=== PATIENT | female | born 1950 | race Caucasian/White ===

== ENCOUNTER → 2018-10-10 13:41 | Outpatient (CLI) | payer OTHER, SELFPAY ==
--- NOTE | 2018-10-10 | DI.CT.S_ITS ---
PROCEDURE: CT SINUS SCREEN WO CON INDICATIONS: CHRONIC SIUSITIS TECHNIQUE: Noncontrast 3.0 mm axial images acquired from the frontal sinuses to the mid-sella, with coronal and sagittal reformats. For radiation dose reduction, the following was used: automated exposure control, adjustment of mA and/or kV according to patient size. COMPARISON: None. FINDINGS: Image quality: Excellent. Sinuses: Sinsues demonstrating minimal ethmoid sinus mucosal thickening. Remaining sinuses are clear. Ostiomeatal Complexes: Ostiomeatal complexes are patent. No Lina cells. Miscellaneous: Visualized intra-orbital contents are normal. No deandre bullosa or paradoxical turbinate curvature. No nasal septal deviation. There is a 5 mm right and 7 mm left parotid masses. No priors are available for comparison. IMPRESSION: 1. Sinsues are clear. 2. Subcentimeter masses within the parotid gland. There overall nonspecific. Primary differential diagnosis includes pleomorphic adenoma, Celi's tumor or less likely neoplastic etiologies. Further evaluation is recommended as clinically indicated. Dictated by: Yani Monzon M.D. on 10/10/2018 at 14:49 Approved by: Yani Monzon M.D. on 10/10/2018 at 15:17
== END ==
PROVIDERS: PCP Internal Medicine; Visit Provider Internal Medicine
DX: J32.1 Chronic frontal sinusitis (principal)
CPT/HCPCS: 70486

== ENCOUNTER → 2020-04-07 12:22 | Outpatient (CLI) | payer MEDICARE, SELFPAY ==
--- NOTE | 2020-04-07 | DI.MRI.S_ITS ---
PROCEDURE: MR KNEE LT WO CON INDICATIONS: Pain in left knee TECHNIQUE: Noncontrast sagittal PD fast spin echo and T2 fast spin echo with fat saturation, sagittal 3-D FLASH with fat saturation; coronal T1 spin echo and PD fast spin echo with fat saturation, and axial PD fast spin echo with fat saturation through the knee. COMPARISON: [facility] [place], CR, XR KNEE ARTHRITIC SERIES LT, 02/23/2020, 13:13. [facility], MR, KNEE WITHOUT CONTRAST, 12/28/2015, 17:31. FINDINGS: Image quality: Excellent. Menisci: Previously seen horizontal tear of the medial meniscus appears to have been repaired. Previously seen posterior horn medial meniscal tear at the meniscal root ligament insertion site has been repaired. No evidence of new medial meniscal tear. Lateral meniscus demonstrates new amorphous high signal intensity within its anterior horn, without evidence of articular surface extension. Cruciate ligaments: The anterior and posterior cruciate ligaments appear intact. There is increased, moderate T2 signal lesion along the course of the anterior cruciate ligament, consistent with myxoid degeneration. Medial structures: The medial collateral ligament appears intact. Visualized portions of the pes anserinus tendons appear normal. Moderate medial bursal fluid. Lateral structures: The lateral collateral ligament, long and short heads of the biceps femoris tendon appear intact. The popliteus tendon appears normal. Iliotibial band appears normal. Anterior structures: The quadriceps and patellar tendons appear intact. There is lateral patellar subluxation. No femoral trochlear dysplasia or ventral trochlear prominence. No edema in the infrapatellar fat pad. Bones and cartilage: No bone marrow contusions or fractures. Mild tricompartmental periarticular osteophyte formation is present. There is moderate to severe articular cartilage loss diffusely overlying the weightbearing aspects of the medial femoral condyle and medial tibial plateau. Mild articular cartilage loss diffusely relies the weightbearing aspects of the lateral femoral condyle and lateral tibial plateau. Severe articular cartilage loss overlies the medial patellar apex and medial patellar facet. Joint space: There is a moderate knee joint effusion and a small Nichole's cyst. Normal appearing synovial plicae are incidentally noted. IMPRESSION: 1. Tricompartmental osteoarthritis with associated articular cartilage loss. 2. Post surgical sequelae involving the medial meniscus. No evidence of new medial meniscal tear. 3. 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 4. 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 5. Knee joint effusion and Nichole's cyst. 6. Medial bursitis. Dictated by: Dread Palma M.D. on 04/07/2020 at 15:25 Approved by: Dread Palma M.D. on 04/07/2020 at 15:29
== END ==
PROVIDERS: PCP Internal Medicine; Referring Provider Orthopaedic Surgery; Visit Provider Orthopaedic Surgery
DX: M25.562 Pain in left knee (principal); M17.12 Unilateral primary osteoarthritis, left knee; M25.462 Effusion, left knee; M71.22 Synovial cyst of popliteal space [Baker], left knee; M71.562 Other bursitis, not elsewhere classified, left knee
CPT/HCPCS: 73721

== ENCOUNTER → 2020-11-24 10:53 | Outpatient (CLI) | payer MEDICARE, SELFPAY ==
--- NOTE | 2020-11-24 | DI.RAD.S_ITS ---
PROCEDURE: XR CHEST 2V INDICATIONS: XR Dyspnea TECHNIQUE: 2 views of the chest were acquired. COMPARISON: [facility], , CHEST 2 VIEW, 09/07/2016, 12:42. FINDINGS: Surgical changes and devices: None. Lungs and pleura: Lungs are clear except for a mild chronic interstitial prominence, stable over time.. No pleural effusions or pneumothorax. Mediastinum: Mediastinal contours are normal. Heart size is normal. Bones and chest wall: No suspicious bony abnormalities. Soft tissues appear unremarkable. Prior right shoulder tendon transfer jami noted. IMPRESSION: Mild chronic interstitial prominence, no acute disease. Dictated by: Ashok Ferrer M.D. on 11/24/2020 at 12:06 Approved by: Ashok Ferrer M.D. on 11/24/2020 at 12:25
[2020-11-24 11:37] LABS: COVID19 -Nasal RAPID Negative (Negative)
== END ==
PROVIDERS: PCP Internal Medicine; Referring Provider Internal Medicine; Visit Provider Internal Medicine
DX: R06.00 Dyspnea, unspecified (principal)
CPT/HCPCS: 71046; 87635; C9803

== ENCOUNTER → 2020-11-24 12:37 | Outpatient (CLI) | payer MEDICARE, SELFPAY ==
--- NOTE | 2020-12-04 11:08 | PM.PFT.1 ---
Pulmonary Function Test Referral & Results Date Patient Seen: 11/24/20 Requesting provider: Jeff Izquierdo Results: The spirometry demonstrates an FVC of 1.41 L which is 54% of predicted. The FEV1 was measured at 1.06 L which is 54% of predicted. The FEV1/FVC ratio was 75 which is 98% of predicted. Following the administration of bronchodilator there was no appreciable change. Lung volumes show an SVC of 1.53 L which is 60% of predicted. The diffusing capacity was measured at 8.21 which is 43% of predicted. No hemoglobin value was provided, so no correction for potential anemia could be made, if appropriate. The maximum voluntary ventilation was reduced Interpretation: This study demonstrates perhaps a moderate obstructive lung disease based on reduction FEV1 although FEV1/FVC ratio is preserved. This may be due to the fact that the SVC is also significantly reduced suggesting significant restrictive lung disease. There is also very significant reduction in diffusing capacity suggesting significant disease of the capillary alveolar level. Altogether this might be consistent more of a neuromuscular disorder causing primarily restrictive lung disease and reduced diffusing capacity Clinical correlation suggested however
== END ==
PROVIDERS: PCP Internal Medicine; Referring Provider Internal Medicine; Visit Provider Internal Medicine
DX: R06.02 Shortness of breath (principal); R06.00 Dyspnea, unspecified
CPT/HCPCS: 71046; 87635; 94060; 94726; 94729; C9803

== ENCOUNTER → 2021-02-09 13:36 | Outpatient (CLI) | payer MEDICARE, SELFPAY ==
--- NOTE | 2021-02-09 | DI.ECHO.S_ITS ---
[facility] +---------+ : : [id number] : [place] : : : : [id number] : : : : Phone: [phone]+ Echocardiogram Report + + :Name: BOSTON JORDAN Study Date: 02/09/2021 Height: 61 in : :[facility] ReadingLocation: Weight: 210 lb : : Gender: Female BSA: 1.9 m2 : :: 1950 Age: 70 yrs BP: 150/74 mmHg: :Reason For Study: DYSPNEA : :Ordering Physician: JOSE M RODPerformed By: Marissa Redmond : :Referring: JOSE M ROD : + + Interpretation Summary The study quality was technically difficult. The ejection fraction is estimated to be 60-65%. There are no obvious focal wall motion abnormalities noted but poor endocardial definition reduces the sensitivity for the detection of such. There is mild mitral regurgitation. Incidental finding of a large hepatic cyst is made. Procedure: A two-dimensional transthoracic echocardiogram with color flow and Doppler was performed. The study quality was technically difficult. A contrast injection of Definity was performed to improve assessment of LV function. Comparison is made with the echocardiogram of 12/21/2013. The patient was in sinus rhythm with heart rates between 56-78 bpm during the exam. Left Ventricle: The left ventricle is normal in size. The ejection fraction is estimated to be 60-65%. There are no obvious focal wall motion abnormalities noted but poor endocardial definition reduces the sensitivity for the detection of such. Right Ventricle: The right ventricle grossly appears normal in size with probable normal systolic function. Atria: Both atria are normal in size. There is no Doppler evidence for an interatrial shunt. Mitral Valve: The mitral valve is normal in structure and function. There is mild mitral regurgitation. Aortic Valve: The aortic valve is trileaflet. The aortic valve opens well. There is no aortic valve stenosis. No aortic regurgitation is present. Tricuspid Valve: The tricuspid valve is normal in structure and function. There is trace tricuspid regurgitation. Pulmonary artery pressures cannot be estimated because of the lack of a measurable TR jet velocity but the IVC suggests a CVP of around 3 mmHg. Pulmonic Valve: The pulmonic valve is not well seen, but is grossly normal. There is no pulmonic valvular regurgitation. Great Vessels: The aortic root is normal size. The dimensions of the ascending aorta are normal. The IVC is of normal diameter and collapses greater than 50% with a sniff. This suggests a low right atrial pressure of 3 mm Hg. Pericardium/ Pleura There is no pericardial effusion. There is no pleural effusion. MMode/2D Measurements & Calculations LVIDd: 4.5 cm LVOT diam: 2.0 cm LVIDs: 3.0 cm Ao root diam: 2.7 cm FS: 33.9 % asc Aorta Diam: 3.2 cm EPSS: 0.52 cm IVSd: 1.1 cm LVPWd: 1.1 cm LV garcia. diameter/BSA (cm/m^2): 2.4 LV sys. diameter/BSA (cm/m^2): 1.6 LA A2 area: 21.6 cm2 RA long axis: 5.6 cm LA A4 area: 19.3 cm2 RA area: 15.6 cm2 LA length (vol): 5.8 cm RA vol: 37.3 ml LA vol: 61.3 ml RA : 19.3 ml/m2 LA vol index: 31.8 ml/m2 IVC diam: 2.0 cm TAPSE: 1.8 cm Doppler Measurements & Calculations Ao V2 max: 126.0 cm/sec LVOT Max Alonzo: 84.3 cm/sec Ao V2 mean: 88.1 cm/sec LV V1 max P.8 mmHg Ao max P.4 mmHg LV V1 VTI: 21.6 cm Ao mean P.5 mmHg SHANTA(I,D): 2.0 cm2 Ao V2 VTI: 33.2 cm SHANTA(V,D): 2.1 cm2 sev ratio: 0.65 SHANTA indexed to BSA (cm^2/m^2): 1.1 MV E max alonzo: 85.9 cm/sec PA V2 max: 72.8 cm/sec MV A max alonzo: 90.7 cm/sec PA V2 mean: 55.4 cm/sec MV E/A: 0.95 PA mean P.4 mmHg Med Peak E' Alonzo: 7.3 cm/sec PA pr(Accel): 46.5 mmHg E/E' med: 11.7 Lat Peak E' Alonzo: 6.0 cm/sec E/E' lat: 14.3 E/e' average: 13.0 MV dec time: 0.32 sec SV(LVOT): 67.6 ml Reading Physician:04:41 PM
== END ==
PROVIDERS: PCP Internal Medicine; Referring Provider Internal Medicine; Visit Provider Internal Medicine
DX: I34.0 Nonrheumatic mitral (valve) insufficiency (principal); I07.1 Rheumatic tricuspid insufficiency; I37.1 Nonrheumatic pulmonary valve insufficiency
CPT/HCPCS: C8929; Q9957

== ENCOUNTER → 2021-04-18 13:33 | Outpatient (CLI) | payer OTHER, SELFPAY ==
--- NOTE | 2021-04-18 | DI.CT.S_ITS ---
PROCEDURE: CT CHEST WO CON INDICATIONS: Dyspnea, unspecified TECHNIQUE: Noncontrast 5 mm thick sections acquired from the pulmonary apices to the posterior costophrenic angles. 1 mm lung window, 5 mm thick coronal and sagittal and 7 mm axial MIP reformats were then acquired. For radiation dose reduction, the following was used: automated exposure control, adjustment of mA and/or kV according to patient size. COMPARISON: None. FINDINGS: Image quality: Excellent. Lungs and pleura: There is a newly identified focal airspace radiodensity at the anterolateral left upper lobe series 3, image 111 measuring up to 6 mm. A small amount of additional airspace stranding is present immediately adjacent, and no additional new nodule is seen elsewhere. acute air space opacities. No pleural effusions or pneumothorax. Central and peripheral airways are patent and normal in caliber. Mediastinum: Heart size is normal. No pericardial effusion. No mediastinal adenopathy by size criteria. Thoracic aorta and central pulmonary arteries are normal in size. Esophagus is normal in caliber. No hiatal hernia. Bones and chest wall: No suspicious bony lesions. No vertebral body compression fractures. No axillary or supraclavicular adenopathy by size criteria. Thyroid gland is not well seen. Abdomen: Visualized upper abdominal solid organs and bowel loops appear normal in the absence of contrast. IMPRESSION: New finding of a 6 mm nodule anterolateral left upper lobe, with a small amount of adjacent alveolar airspace disease a suggesting this may represent an inflammatory process. Follow-up noncontrast low-dose CT scanning in 6 months is recommended to confirm resolution or stability over time. Elsewhere the study is normal. Dictated by: Ashok Ferrer M.D. on 04/18/2021 at 15:07 Approved by: Ashok Ferrer M.D. on 04/18/2021 at 15:09
== END ==
PROVIDERS: PCP Internal Medicine; Referring Provider Internal Medicine; Visit Provider Internal Medicine
DX: R06.00 Dyspnea, unspecified (principal); R91.1 Solitary pulmonary nodule
CPT/HCPCS: 71250

== ENCOUNTER 2022-07-19 13:22 | Emergency (ER) | payer OTHER, SELFPAY ==
[2022-07-19] VITALS (21 sets, daily range): BP systolic 92–164; BP diastolic 62–103; PULSE 46–101; RESP 10–26; TEMP 37.2; O2SAT 90–95; BMI 41.1
--- NOTE | 2022-07-19 13:43 | DI.RAD.S_ITS ---
PROCEDURE: XR CHEST 2V INDICATIONS: shortness of breath TECHNIQUE: 2 views of the chest were acquired. COMPARISON: [facility], CR, XR CHEST 2V, 11/24/2020, 11:22. FINDINGS: Surgical changes and devices: None. Lungs and pleura: Lungs are clear. No pleural effusions or pneumothorax. Mediastinum: Mediastinal contours are normal. Cardiomegaly. Bones and chest wall: No suspicious bony abnormalities. Soft tissues appear unremarkable. IMPRESSION: Cardiomegaly. No evidence acute pulmonary process. Dictated by: Akira Eller M.D. on 07/19/2022 at 14:28 Approved by: Akira Eller M.D. on 07/19/2022 at 14:31
[2022-07-19 14:09] LABS: Add Manual Diff / Slide Review NO; Basophils Absolute Auto 100 /uL (0-100); Basophils Percent Auto 1.2 % (0-2); Eosinophils Absolute Auto 0 /uL (0-450); Eosinophils Percent Auto 0.1 % (2-4); Hematocrit 49.4 % (36-46); Hemoglobin 16.5 g/dL (12.0-16.0); Lymphocytes Absolute Auto 2000 /uL (1100-4500); Lymphocytes Percent Auto 19.9 % (25-40); Mean Corpuscular HGB Conc 33.4 % (30-36); Mean Corpuscular Hemoglobin 29.7 PG (26-34); Monocytes Absolute Auto 700 /uL (0-900); Monocytes Percent Auto 7.4 % (3-14); Neutrophils Absolute Auto 7200 /uL (1500-7000); Neutrophils Percent Auto 71.4 % (50-75); Platelet Count 179 X10^3/uL (150-400); Red Blood Cell Count 5.55 X10^6/uL (4.0-5.2); Red Cell Distribution Width 15.2 % (11.6-14.8)
[2022-07-19 14:15] LABS: Prothrombin Time 11.4 SECONDS (10.1-12.7)
[2022-07-19 14:20] LABS: Alanine Aminotransferase 50 IU/L (<35); Albumin 4.1 g/dL (3.5-5.0); Alkaline Phosphatase 146 U/L (38-126); Aspartate Aminotransferase 54 IU/L (14-36); BUN Creatinine Ratio 33.3 (6-22); Bilirubin Total 0.8 mg/dL (0.2-1.3); Blood Urea Nitrogen 21 mg/dL (7-17); Calcium 9.3 mg/dL (8.4-10.2); Carbon Dioxide 26 mmol/L (22-32); Chloride 102 mmol/L (98-107); Estimated Glomerular Filt Rate > 60 mL/min (>60); Globulin 4.3 g/dL (1.7-4.1); Glucose 149 mg/dL (80-110); Potassium 4.3 mmol/L (3.4-5.1); Sodium 137 mmol/L (137-145); Total Protein 8.4 g/dL (6.3-8.2)
[2022-07-19 14:21] LABS: Creatine Kinase 31 U/L (30-135); HEMOLYSIS 91 (0-50); Lactate (Lactic Acid) 1.5 mmol/L (0.7-2.1)
[2022-07-19 14:29] LABS: NT-proBNP (BNP-Adult 18+) 595 pg/mL (<125)
--- NOTE | 2022-07-19 14:29 | ED.SOB ---
HPI - SOB/Dyspnea <Walter Iqbal PA-C - Last Filed: 07/19/22 20:45> General Chief Complaint: Shortness of Breath/Dyspnea Stated Complaint: Rt side chest/ABD pain Time Seen by Provider: 07/19/22 14:10 History of Present Illness HPI Narrative: This is a 71-year-old female presents to the due to a week of worsening shortness of breath. Patient states that she has had off and on shortness of breath chronically for the last couple of years but states that has gotten worse over the last week. Patient initially went to [facility] where she was diagnosed with RSV and placed on 2 L of oxygen to take at home. Patient states that she has developed some right-sided rib as well as left-sided back pain that she is concerned maybe pneumonia. Denies any fevers or chills. Patient states that she has chronically low blood pressure due to the beta-adam she is taking.. Patient has a history of thyroid disease which is what initially was placed her on beta-adam. Related Data Home Medications Medication Instructions Recorded Confirmed loratadine 10 mg tablet (Claritin) 10 mg PO QDAY ##0 11/21/12 07/27/22 levothyroxine 150 mcg tablet 150 mcg PO .COMPLEX 06/28/22 07/27/22 pyridostigmine bromide 60 mg 60 mg PO .COMPLEX 06/28/22 07/27/22 tablet (Mestinon) Zinc 15 with copper 1 tab PO DAILY 07/27/22 acetaminophen 300 mg-codeine 30 mg 1 tab PO DAILY PRN 07/27/22 07/27/22 tablet aspirin 81 mg tablet,delayed 81 mg PO DAILY 07/27/22 07/27/22 release blood sugar diagnostic (OneTouch #10 ea 07/27/22 07/27/22 Ultra Test strips) cholecalciferol (vitamin D3) 125 125 mcg PO DAILY 07/27/22 07/27/22 mcg (5,000 unit) capsule fish,bora,flax oils-om3,6,9no1 1 cap PO DAILY 07/27/22 07/27/22 fluticasone propionate 50 2 spray intranasal BID 07/27/22 07/27/22 mcg/actuation nasal spray,suspension furosemide 20 mg tablet 20 mg PO DAILY PRN 07/27/22 07/27/22 ibuprofen 200 mg capsule 400 mg PO Q8H PRN 07/27/22 07/27/22 ipratropium bromide 42 mcg (0.06 2 spray intranasal QID 07/27/22 07/27/22 %) nasal spray lancets 33 gauge (Almita Manuel #100 ea 07/27/22 07/27/22 Plus Lancet) lorazepam 1 mg tablet 1 mg PO BID PRN 07/27/22 07/27/22 lysine 600 mg tablet 600 mg PO DAILY 07/27/22 07/27/22 metformin 500 mg tablet 500 mg PO BID 07/27/22 07/27/22 metoprolol tartrate 25 mg tablet 25 mg PO BID 07/27/22 07/27/22 ondansetron 4 mg disintegrating 8 mg PO BID 07/27/22 07/27/22 tablet quercetin 500 mg capsule 500 mg PO DAILY 07/27/22 07/27/22 zolpidem 10 mg tablet (Ambien) See Rx Instructions PO BEDTIME PRN 07/27/22 07/27/22 Insomnia Previous Rx's Medication Instructions Recorded LIDOCAINE 1 patch topical SEE INSTRUCTIONS 02/05/13 ##30 loperamide 2 mg capsule (Imodium 2 mg PO TID PRN loose stool #90 06/29/22 A-D) caps ipratropium 0.5 mg-albuterol 3 mg 3 ml inhalation QID PRN shortness 07/25/22 (2.5 mg base)/3 mL nebulization of breath or wheezing #180 mL soln nicotine 7 mg/24 hr daily 1 patch transdermal Q24H #28 ea 07/27/22 transdermal patch Allergies Allergy/AdvReac Type Severity Reaction Status Date / Time amoxicillin Allergy Severe Hives Verified 07/27/22 07:49 oxycodone [From Percocet] Allergy Intermediate ITCHING Verified 07/27/22 07:49 bupropion [From Zyban] AdvReac Intermediate tachycardia Verified 07/27/22 07:49 clindamycin AdvReac Intermediate jaw pain Verified 07/27/22 07:49 hydrocodone [From [place]] AdvReac Intermediate hyper Verified 07/27/22 07:49 oxymetazoline AdvReac Intermediate cold Verified 07/27/22 07:49 [From Afrin (oxymetazoline)] sweats, gi upset venlafaxine [From Effexor] AdvReac Intermediate Agitated Verified 07/27/22 07:49 Review of Systems <Walter Iqbal PA-C - Last Filed: 07/19/22 20:45> Review of Systems Narrative: GENERAL: Denies chills, fatigue, malaise, fever, sweats. HEENT: Denies sinus pain, ear pain, sore throat, difficulty swallowing, dizziness. RESPIRATORY: Reports shortness of breath, denies cough, wheezing, hemoptysis, sputum. CARDIOVASCULAR: Denies chest pain, palpitations, orthopnea, edema, GASTROINTESTINAL: Denies nausea, vomiting, abdominal pain, diarrhea, constipation, melena. : Denies dysuria, frequency, incontinence, hematuria, urinary retention. MUSCULOSKELETAL: Reports right rib and left back pain otherwise denies weakness, joint pain, or bony pain SKIN: Denies rash, skin lesions, or other NEUROLOGIC: Denies weakness, headache, numbness, change in speech, confusion, seizures, incoordination. PSYCHIATRIC: No concerning psychosocial issues. 12 point review of systems is negative except for those stated above Patient History <Walter Iqbal PA-C - Last Filed: 07/19/22 20:45> Medical History (Updated 07/27/22 @ 10:18 by Seth Keller MD) Chronic respiratory failure with hypoxia COPD (chronic obstructive pulmonary disease) Myasthenia gravis Nonsp fernandez skn test wo tb (11/21/12) Pneumonia due to other specified bacteria (11/21/12) Polycythemia secondary to hypoxia Tobacco use disorder Venous (peripheral) insufficiency Social History Smoking Status: Current every day smoker Tobacco: How many years used: 51 alcohol intake: former (early 20s) substance use type: does not use Smoking Status: Current every day smoker Exam <Walter Iqbal PA-C - Last Filed: 07/19/22 20:45> Narrative Exam Narrative: GENERAL: Well-developed patient, in mild distress. HEAD: Atraumatic. Normocephalic. EYES: Pupils equal round and reactive. Extraocular motions intact. No scleral icterus. No injection or drainage. ENT: Nose without bleeding, purulent drainage. Throat without erythema, tonsillar hypertrophy or exudate. Airway patent. NECK: Trachea midline. Non tender CARDIOVASCULAR: Regular rate and rhythm without murmurs, gallops, or rubs. RESPIRATORY: Currently on 4 L of oxygen via nasal cannula. Lung sounds diminished. Breath sounds equal bilaterally. faint wheezes, no rales, or rhonchi. GASTROINTESTINAL: Abdomen soft, non-tender, nondistended. EXTREMITIES: No edema or joint tenderness. BACK: Nontender without deformity or crepitance. No flank tenderness. NEURO: AOx3. SKIN: No rash or erythema of visible areas Initial Vital Signs Initial Vital Signs: Vital Signs Pulse Rate 86 07/19/22 13:35 Pulse Oximetry 91 07/19/22 13:35 Oxygen Delivery Method 07/19/22 13:35 Oxygen Flow Rate 4 07/19/22 13:35 <Nils Topete MD - Last Filed: 08/01/22 22:23> Initial Vital Signs Initial Vital Signs: Vital Signs Pulse Rate 86 07/19/22 13:35 Pulse Oximetry 91 07/19/22 13:35 Oxygen Delivery Method 07/19/22 13:35 Oxygen Flow Rate 4 07/19/22 13:35 Course <Walter Iqbal PA-C - Last Filed: 07/19/22 20:45> Orders Ordered: Discontinued Medications Albuterol/Ipratropium (Albuterol/Ipratropium 3 Ml Ampul) 3 ml INH NOW ONE Stop: 07/19/22 16:52 Last Admin: 07/19/22 17:00 Dose: 3 ml Documented By: NL Azithromycin (Azithromycin 250 Mg Tablet) 500 mg PO NOW ONE Stop: 07/19/22 20:23 Last Admin: 07/19/22 20:34 Dose: 500 mg Documented By: AT Methylprednisolone (Methylprednisolone 125 Mg/2 Ml Vial) 125 mg IV NOW ONE Stop: 07/19/22 17:32 Last Admin: 07/19/22 17:36 Dose: 125 mg Documented By: AT Vital Signs Vital signs: Vital Signs - 8 hr 07/19/22 13:39 07/19/22 13:35 07/19/22 13:36 Temperature 98.9 F Pulse Rate 88 86 Respiratory Rate 26 H Blood Pressure 148/103 H 148/103 H Pulse Oximetry 93 91 Oxygen Delivery Method Nasal Cannula Nasal Cannula Oxygen Flow Rate 4 4 07/19/22 13:36 07/19/22 14:06 07/19/22 14:09 Temperature Pulse Rate 88 46 L Respiratory Rate 23 Blood Pressure 92/62 Pulse Oximetry 93 Oxygen Delivery Method Nasal Cannula Oxygen Flow Rate 4 07/19/22 14:09 07/19/22 14:30 07/19/22 14:30 Temperature Pulse Rate 82 73 Respiratory Rate 22 17 Blood Pressure 154/70 H Pulse Oximetry 91 91 Oxygen Delivery Method Oxygen Flow Rate 07/19/22 15:18 07/19/22 15:30 07/19/22 16:00 Temperature Pulse Rate 60 77 68 Respiratory Rate 23 20 12 Blood Pressure Pulse Oximetry 95 92 95 Oxygen Delivery Method Oxygen Flow Rate 07/19/22 16:30 07/19/22 17:00 07/19/22 17:00 Temperature Pulse Rate 73 71 74 Respiratory Rate 18 16 24 Blood Pressure Pulse Oximetry 95 91 91 Oxygen Delivery Method Nasal Cannula Oxygen Flow Rate 3 07/19/22 17:11 07/19/22 17:11 07/19/22 17:30 Temperature Pulse Rate 70 Respiratory Rate 18 Blood Pressure 143/67 H 164/66 H Pulse Oximetry 90 L Oxygen Delivery Method Nasal Cannula Oxygen Flow Rate 4 07/19/22 17:30 07/19/22 18:00 07/19/22 18:00 Temperature Pulse Rate 72 69 Respiratory Rate 25 H 10 L Blood Pressure 157/73 H Pulse Oximetry 92 94 Oxygen Delivery Method Nasal Cannula Nasal Cannula Oxygen Flow Rate 4 4 07/19/22 18:30 07/19/22 19:00 07/19/22 19:30 Temperature Pulse Rate 87 82 74 Respiratory Rate 25 H 18 Blood Pressure Pulse Oximetry 91 92 92 Oxygen Delivery Method Nasal Cannula Nasal Cannula Oxygen Flow Rate 4 4 07/19/22 20:00 Temperature Pulse Rate 88 Respiratory Rate 15 Blood Pressure Pulse Oximetry 93 Oxygen Delivery Method Nasal Cannula Oxygen Flow Rate 4 <Nils Topete MD - Last Filed: 08/01/22 22:23> Orders Ordered: Discontinued Medications Albuterol/Ipratropium (Albuterol/Ipratropium 3 Ml Ampul) 3 ml INH NOW ONE Stop: 07/19/22 16:52 Last Admin: 07/19/22 17:00 Dose: 3 ml Documented By: NL Azithromycin (Azithromycin 250 Mg Tablet) 500 mg PO NOW ONE Stop: 07/19/22 20:23 Last Admin: 07/19/22 20:34 Dose: 500 mg Documented By: AT Methylprednisolone (Methylprednisolone 125 Mg/2 Ml Vial) 125 mg IV NOW ONE Stop: 07/19/22 17:32 Last Admin: 07/19/22 17:36 Dose: 125 mg Documented By: AT Vital Signs Vital signs: Vital Signs - 8 hr 07/19/22 13:39 07/19/22 13:35 07/19/22 13:36 Temperature 98.9 F Pulse Rate 88 86 Respiratory Rate 26 H Blood Pressure 148/103 H 148/103 H Pulse Oximetry 93 91 Oxygen Delivery Method Nasal Cannula Nasal Cannula Oxygen Flow Rate 4 4 07/19/22 13:36 07/19/22 14:06 07/19/22 14:09 Temperature Pulse Rate 88 46 L Respiratory Rate 23 Blood Pressure 92/62 Pulse Oximetry 93 Oxygen Delivery Method Nasal Cannula Oxygen Flow Rate 4 07/19/22 14:09 07/19/22 14:30 07/19/22 14:30 Temperature Pulse Rate 82 73 Respiratory Rate 22 17 Blood Pressure 154/70 H Pulse Oximetry 91 91 Oxygen Delivery Method Oxygen Flow Rate 07/19/22 15:18 07/19/22 15:30 07/19/22 16:00 Temperature Pulse Rate 60 77 68 Respiratory Rate 23 20 12 Blood Pressure Pulse Oximetry 95 92 95 Oxygen Delivery Method Oxygen Flow Rate 07/19/22 16:30 07/19/22 17:00 07/19/22 17:00 Temperature Pulse Rate 73 71 74 Respiratory Rate 18 16 24 Blood Pressure Pulse Oximetry 95 91 91 Oxygen Delivery Method Nasal Cannula Oxygen Flow Rate 3 07/19/22 17:11 07/19/22 17:11 07/19/22 17:30 Temperature Pulse Rate 70 Respiratory Rate 18 Blood Pressure 143/67 H 164/66 H Pulse Oximetry 90 L Oxygen Delivery Method Nasal Cannula Oxygen Flow Rate 4 07/19/22 17:30 07/19/22 18:00 07/19/22 18:00 Temperature Pulse Rate 72 69 Respiratory Rate 25 H 10 L Blood Pressure 157/73 H Pulse Oximetry 92 94 Oxygen Delivery Method Nasal Cannula Nasal Cannula Oxygen Flow Rate 4 4 07/19/22 18:30 07/19/22 19:00 07/19/22 19:30 Temperature Pulse Rate 87 82 74 Respiratory Rate 25 H 18 Blood Pressure Pulse Oximetry 91 92 92 Oxygen Delivery Method Nasal Cannula Nasal Cannula Oxygen Flow Rate 4 4 07/19/22 20:00 Temperature Pulse Rate 88 Respiratory Rate 15 Blood Pressure Pulse Oximetry 93 Oxygen Delivery Method Nasal Cannula Oxygen Flow Rate 4 MDM - SOB/Dyspnea <Walter Iqbal PA-C - Last Filed: 07/19/22 20:45> Lab Data Result diagrams: 07/19/22 13:53 07/19/22 13:53 Labs: Lab Results 07/19/22 07/19/22 07/19/22 Range/Units 13:53 13:53 13:53 WBC 10.0 (4.5-11.0) X10^3/uL RBC 5.55 H (4.0-5.2) X10^6/uL Hgb 16.5 H (12.0-16.0) g/dL Hct 49.4 H (36-46) % MCV 89.0 (80-100) fL MCH 29.7 (26-34) PG MCHC 33.4 (30-36) % RDW 15.2 H (11.6-14.8) % Plt Count 179 (150-400) X10^3/uL Neut % (Auto) 71.4 (50-75) % Lymph % (Auto) 19.9 L (25-40) % [place] % (Auto) 7.4 (3-14) % Eos % (Auto) 0.1 L (2-4) % Baso % (Auto) 1.2 (0-2) % Neut # (Auto) 7200 H (2330-9793) /uL Lymph # (Auto) 2000 (2595-6189) /uL [place] # (Auto) 700 (0-900) /uL Eos # (Auto) 0 (0-450) /uL Baso # (Auto) 100 (0-100) /uL PT 11.4 (10.1-12.7) SECONDS INR 1.0 (0.9-1.3) D-Dimer (<500) ng/ml Sodium 137 (137-145) mmol/L Potassium 4.3 (3.4-5.1) mmol/L Chloride 102 (98-107) mmol/L Carbon Dioxide 26 (22-32) mmol/L BUN 21 H (7-17) mg/dL Creatinine 0.63 (0.52-1.04) mg/dL Estimated GFR > 60 (>60) mL/min BUN/Creatinine Ratio 33.3 H (6-22) Glucose 149 H (80-110) mg/dL Lactate (0.7-2.1) mmol/L Calcium 9.3 (8.4-10.2) mg/dL Total Bilirubin 0.8 (0.2-1.3) mg/dL AST 54 H (14-36) IU/L ALT 50 H (<35) IU/L Alkaline Phosphatase 146 H (38-126) U/L Total Creatine Kinase (30-135) U/L CK-MB (CK-2) CK-MB (CK-2) Rel Index Troponin I (0.01-0.034) ng/mL NT-Pro-B Natriuret Pep 595 H (<125) pg/mL Total Protein 8.4 H (6.3-8.2) g/dL Albumin 4.1 (3.5-5.0) g/dL Globulin 4.3 H (1.7-4.1) g/dL Albumin/Globulin Ratio 1.0 (1.0-2.8) Procalcitonin (<0.5) ng/mL Chlamy pneumoniae PCR (Not Detect) Adenovirus (PCR) (Not Detect) B. pertussis DNA (PCR) (Not Detecte) B.parapertussis DNA PCR (Not Detecte) Coronavirus OC43 (PCR) (Not Detect) Coronavirus HKU1 (PCR) (Not Detect) Coronavirus 229E (PCR) (Not Detect) SARS-CoV-2 (PCR) (Not Detecte) Coronavirus NL63 (PCR) (Not Detect) Human Metapneumovir PCR (Not Detect) Influenza Type A (PCR) (Not Detect) Influenza Type B (PCR) (Not Detect) M. pneumoniae (PCR) (Not Detect) Parainfluenza 1 (PCR) (Not Detect) Parainfluenza 2 (PCR) (Not Detect) Parainfluenza 3 (PCR) (Not Detect) Parainfluenza 4 (PCR) (Not Detect) RSV (PCR) (Not Detect) Entero/Rhino (PCR) (Not Detect) 07/19/22 07/19/22 07/19/22 Range/Units 13:53 13:53 13:53 WBC (4.5-11.0) X10^3/uL RBC (4.0-5.2) X10^6/uL Hgb (12.0-16.0) g/dL Hct (36-46) % MCV (80-100) fL MCH (26-34) PG MCHC (30-36) % RDW (11.6-14.8) % Plt Count (150-400) X10^3/uL Neut % (Auto) (50-75) % Lymph % (Auto) (25-40) % [place] % (Auto) (3-14) % Eos % (Auto) (2-4) % Baso % (Auto) (0-2) % Neut # (Auto) (5904-8713) /uL Lymph # (Auto) (0051-3087) /uL [place] # (Auto) (0-900) /uL Eos # (Auto) (0-450) /uL Baso # (Auto) (0-100) /uL PT (10.1-12.7) SECONDS INR (0.9-1.3) D-Dimer 830 H (<500) ng/ml Sodium (137-145) mmol/L Potassium (3.4-5.1) mmol/L Chloride (98-107) mmol/L Carbon Dioxide (22-32) mmol/L BUN (7-17) mg/dL Creatinine (0.52-1.04) mg/dL Estimated GFR (>60) mL/min BUN/Creatinine Ratio (6-22) Glucose (80-110) mg/dL Lactate 1.5 (0.7-2.1) mmol/L Calcium (8.4-10.2) mg/dL Total Bilirubin (0.2-1.3) mg/dL AST (14-36) IU/L ALT (<35) IU/L Alkaline Phosphatase (38-126) U/L Total Creatine Kinase 31 (30-135) U/L CK-MB (CK-2) TNP CK-MB (CK-2) Rel Index TNP Troponin I < 0.012 (0.01-0.034) ng/mL NT-Pro-B Natriuret Pep (<125) pg/mL Total Protein (6.3-8.2) g/dL Albumin (3.5-5.0) g/dL Globulin (1.7-4.1) g/dL Albumin/Globulin Ratio (1.0-2.8) Procalcitonin (<0.5) ng/mL Chlamy pneumoniae PCR (Not Detect) Adenovirus (PCR) (Not Detect) B. pertussis DNA (PCR) (Not Detecte) B.parapertussis DNA PCR (Not Detecte) Coronavirus OC43 (PCR) (Not Detect) Coronavirus HKU1 (PCR) (Not Detect) Coronavirus 229E (PCR) (Not Detect) SARS-CoV-2 (PCR) (Not Detecte) Coronavirus NL63 (PCR) (Not Detect) Human Metapneumovir PCR (Not Detect) Influenza Type A (PCR) (Not Detect) Influenza Type B (PCR) (Not Detect) M. pneumoniae (PCR) (Not Detect) Parainfluenza 1 (PCR) (Not Detect) Parainfluenza 2 (PCR) (Not Detect) Parainfluenza 3 (PCR) (Not Detect) Parainfluenza 4 (PCR) (Not Detect) RSV (PCR) (Not Detect) Entero/Rhino (PCR) (Not Detect) 07/19/22 07/19/22 Range/Units 13:53 13:55 WBC (4.5-11.0) X10^3/uL RBC (4.0-5.2) X10^6/uL Hgb (12.0-16.0) g/dL Hct (36-46) % MCV (80-100) fL MCH (26-34) PG MCHC (30-36) % RDW (11.6-14.8) % Plt Count (150-400) X10^3/uL Neut % (Auto) (50-75) % Lymph % (Auto) (25-40) % [place] % (Auto) (3-14) % Eos % (Auto) (2-4) % Baso % (Auto) (0-2) % Neut # (Auto) (1855-2985) /uL Lymph # (Auto) (4012-3666) /uL [place] # (Auto) (0-900) /uL Eos # (Auto) (0-450) /uL Baso # (Auto) (0-100) /uL PT (10.1-12.7) SECONDS INR (0.9-1.3) D-Dimer (<500) ng/ml Sodium (137-145) mmol/L Potassium (3.4-5.1) mmol/L Chloride (98-107) mmol/L Carbon Dioxide (22-32) mmol/L BUN (7-17) mg/dL Creatinine (0.52-1.04) mg/dL Estimated GFR (>60) mL/min BUN/Creatinine Ratio (6-22) Glucose (80-110) mg/dL Lactate (0.7-2.1) mmol/L Calcium (8.4-10.2) mg/dL Total Bilirubin (0.2-1.3) mg/dL AST (14-36) IU/L ALT (<35) IU/L Alkaline Phosphatase (38-126) U/L Total Creatine Kinase (30-135) U/L CK-MB (CK-2) CK-MB (CK-2) Rel Index Troponin I (0.01-0.034) ng/mL NT-Pro-B Natriuret Pep (<125) pg/mL Total Protein (6.3-8.2) g/dL Albumin (3.5-5.0) g/dL Globulin (1.7-4.1) g/dL Albumin/Globulin Ratio (1.0-2.8) Procalcitonin 0.06 (<0.5) ng/mL Chlamy pneumoniae PCR Not detected (Not Detect) Adenovirus (PCR) Not detected (Not Detect) B. pertussis DNA (PCR) Not detected (Not Detecte) B.parapertussis DNA PCR Not detected (Not Detecte) Coronavirus OC43 (PCR) Not detected (Not Detect) Coronavirus HKU1 (PCR) Not detected (Not Detect) Coronavirus 229E (PCR) Not detected (Not Detect) SARS-CoV-2 (PCR) Not detected (Not Detecte) Coronavirus NL63 (PCR) Not detected (Not Detect) Human Metapneumovir PCR Not detected (Not Detect) Influenza Type A (PCR) Not detected (Not Detect) Influenza Type B (PCR) Not detected (Not Detect) M. pneumoniae (PCR) Not detected (Not Detect) Parainfluenza 1 (PCR) Not detected (Not Detect) Parainfluenza 2 (PCR) Not detected (Not Detect) Parainfluenza 3 (PCR) Not detected (Not Detect) Parainfluenza 4 (PCR) Not detected (Not Detect) RSV (PCR) Not detected (Not Detect) Entero/Rhino (PCR) Detected H (Not Detect) Imaging Data Chest x-ray: Radiologist's Impression: [address] [address] XRay Report Signed Patient: Saima Almonte MR#: [id number] : 1950 Acct:[id number] Age/Sex: 71 / F Date of Service: 07/19/22 Loc: ED Accession Number: [id number] ?? Procedure: XR chest 2V Ordering Provider: Nils Topete MD PROCEDURE:? XR CHEST 2V ? INDICATIONS:? shortness of breath ? TECHNIQUE:? 2 views of the chest were acquired.? ? COMPARISON:? [facility], , XR CHEST 2V, 11/24/2020, 11:22. ? FINDINGS:? ? Surgical changes and devices:? None.? ? Lungs and pleura:? Lungs are clear.? No pleural effusions or pneumothorax.? ? Mediastinum:? Mediastinal contours are normal.? Cardiomegaly. ? Bones and chest wall:? No suspicious bony abnormalities.? Soft tissues appear unremarkable.? ? IMPRESSION:? Cardiomegaly. No evidence acute pulmonary process. ? ? ? Dictated by: Akira Eller M.D. on 07/19/2022 at 14:28 ? ? Approved by: Akira Eller M.D. on 07/19/2022 at 14:31 ? CT scan - chest: Radiologist's Impression: [address] [address] [address] Scan Report Signed Patient: Saima Almonte MR#: [id number] : 1950 Acct:[id number] Age/Sex: 71 / F Date of Service: 07/19/22 Loc: ED Accession Number: [id number] ?? Procedure: CT angio chest PE protocol Ordering Provider: Walter Iqbal P.A-C PROCEDURE:? CT ANGIO CHEST PE PROTOCOL ? INDICATIONS:? SOB w/ elevated D Dimer ? TECHNIQUE:? After the administration of intravenous contrast, 2 mm thick sections acquired from the pulmonary apices to the posterior costophrenic angles.? 3-dimensional maximum intensity projection (MIP) coronal and sagittal reformats were then acquired through the thorax.? For radiation dose reduction, the following was used:? automated exposure control, adjustment of mA and/or kV according to patient size.? ? COMPARISON:? [facility], CT, PE STUDY (CTA CHEST), 12/21/2013, 9:04.? [facility], CT, CT CHEST WO CON, 04/18/2021, 14:03. ? FINDINGS:? Image quality:? Excellent.? ? Pulmonary arteries:? Pulmonary arteries are normal in size, and demonstrate no intraluminal filling defects to suggest central pulmonary embolism.? ? Lungs and pleura:? Patchy opacities are noted within the right upper and middle lobes.? Left upper lobe nodule measuring 6 mm is present on series 5, image 107 unchanged since 2014 and likely benign ? Mediastinum:? Heart size is normal, without pericardial effusion.? Multiple bilateral lymph nodes are present, some borderline enlarged in size but overall unchanged.? There is a prominent right hilar lymph node which has been stable since 2014 as well as a similar although less prominent left hilar lymph node, also stable.? Thoracic aorta is normal in caliber and enhancement.? Esophagus is normal in caliber, without hiatal hernia.? ? Bones and chest wall:? No suspicious bony lesions.? Ribs and thoracic spine appear intact throughout.? Thyroid gland is not well visualized.? No axillary or supraclavicular adenopathy.? Soft tissue density is noted within the right progressed measuring approximately 2.6 cm this is unchanged compared to 2020 but is not visualized on prior exam in 2013. ? Abdomen:? Low-attenuation foci are present within the liver appearing suggestive of simple cysts.? There are more posterior areas demonstrate partial enhancement, unchanged and possibly related to hemangiomas.? Otherwise, visualized upper abdominal solid organs appear normal in the early arterial phase of enhancement.? ? IMPRESSION:? ? No pulmonary embolism. ? Patchy right lobe opacities likely related atelectasis.? Underlying developing pneumonia cannot be definitively excluded. ? Stable appearance of mediastinal and hilar lymph nodes compared to 2013. ? Soft tissue mass within the right breast stable since 2020 but new since 2013. Recommend mammogram follow-up as malignancy cannot be definitively excluded. ? ? Dictated by: Yani Monzon M.D. on 07/19/2022 at 15:28 ? ? Approved by: Yani Monzon M.D. on 07/19/2022 at 15:38 ? MDM Narrative Medical decision making narrative: This is a 71-year-old female presents emergency department due to worsening shortness of breath. Patient states that she was discharged home from [facility] placed on 2 L nasal cannula with a diagnosis of RSV. Since arrival to our emergency department patient has been on 4 L via nasal cannula. Multiple attempts have been made to wean the patient off of the oxygen after breathing treatments and IV Solu-Medrol without success. Every time that oxygen was weaned patient would desat. Due to the shortness of breath chest x-ray was ordered as well as a CT PE which was negative for pulmonary embolism but did show right-sided atelectasis with the inability to exclude pneumonia although white count within normal limits. Patient denies any history of CHF or COPD although she is a reported smoker for the last 50 years. States that she was not on any home oxygen before being seen by [facility] a week ago. Discussed the case with hospitalist [employer] [facility], who recommended ordering a procalcitonin. Also recommended giving a dose of oral azithromycin here in the emergency department and discharged with a course as well. On record review PFT shows a baseline of 90% oxygen saturation on room air from 2020. Patient will be discharged home these recommendations. <Nils Topete MD - Last Filed: 08/01/22 22:23> Lab Data Labs: Lab Results 07/19/22 07/19/22 07/19/22 Range/Units 13:53 13:53 13:53 WBC 10.0 (4.5-11.0) X10^3/uL RBC 5.55 H (4.0-5.2) X10^6/uL Hgb 16.5 H (12.0-16.0) g/dL Hct 49.4 H (36-46) % MCV 89.0 (80-100) fL MCH 29.7 (26-34) PG MCHC 33.4 (30-36) % RDW 15.2 H (11.6-14.8) % Plt Count 179 (150-400) X10^3/uL Neut % (Auto) 71.4 (50-75) % Lymph % (Auto) 19.9 L (25-40) % [place] % (Auto) 7.4 (3-14) % Eos % (Auto) 0.1 L (2-4) % Baso % (Auto) 1.2 (0-2) % Neut # (Auto) 7200 H (2385-3347) /uL Lymph # (Auto) 2000 (0777-8944) /uL [place] # (Auto) 700 (0-900) /uL Eos # (Auto) 0 (0-450) /uL Baso # (Auto) 100 (0-100) /uL PT 11.4 (10.1-12.7) SECONDS INR 1.0 (0.9-1.3) D-Dimer (<500) ng/ml Sodium 137 (137-145) mmol/L Potassium 4.3 (3.4-5.1) mmol/L Chloride 102 (98-107) mmol/L Carbon Dioxide 26 (22-32) mmol/L BUN 21 H (7-17) mg/dL Creatinine 0.63 (0.52-1.04) mg/dL Estimated GFR > 60 (>60) mL/min BUN/Creatinine Ratio 33.3 H (6-22) Glucose 149 H (80-110) mg/dL Lactate (0.7-2.1) mmol/L Calcium 9.3 (8.4-10.2) mg/dL Total Bilirubin 0.8 (0.2-1.3) mg/dL AST 54 H (14-36) IU/L ALT 50 H (<35) IU/L Alkaline Phosphatase 146 H (38-126) U/L Total Creatine Kinase (30-135) U/L CK-MB (CK-2) CK-MB (CK-2) Rel Index Troponin I (0.01-0.034) ng/mL NT-Pro-B Natriuret Pep 595 H (<125) pg/mL Total Protein 8.4 H (6.3-8.2) g/dL Albumin 4.1 (3.5-5.0) g/dL Globulin 4.3 H (1.7-4.1) g/dL Albumin/Globulin Ratio 1.0 (1.0-2.8) Procalcitonin (<0.5) ng/mL Chlamy pneumoniae PCR (Not Detect) Adenovirus (PCR) (Not Detect) B. pertussis DNA (PCR) (Not Detecte) B.parapertussis DNA PCR (Not Detecte) Coronavirus OC43 (PCR) (Not Detect) Coronavirus HKU1 (PCR) (Not Detect) Coronavirus 229E (PCR) (Not Detect) SARS-CoV-2 (PCR) (Not Detecte) Coronavirus NL63 (PCR) (Not Detect) Human Metapneumovir PCR (Not Detect) Influenza Type A (PCR) (Not Detect) Influenza Type B (PCR) (Not Detect) M. pneumoniae (PCR) (Not Detect) Parainfluenza 1 (PCR) (Not Detect) Parainfluenza 2 (PCR) (Not Detect) Parainfluenza 3 (PCR) (Not Detect) Parainfluenza 4 (PCR) (Not Detect) RSV (PCR) (Not Detect) Entero/Rhino (PCR) (Not Detect) 07/19/22 07/19/22 07/19/22 Range/Units 13:53 13:53 13:53 WBC (4.5-11.0) X10^3/uL RBC (4.0-5.2) X10^6/uL Hgb (12.0-16.0) g/dL Hct (36-46) % MCV (80-100) fL MCH (26-34) PG MCHC (30-36) % RDW (11.6-14.8) % Plt Count (150-400) X10^3/uL Neut % (Auto) (50-75) % Lymph % (Auto) (25-40) % [place] % (Auto) (3-14) % Eos % (Auto) (2-4) % Baso % (Auto) (0-2) % Neut # (Auto) (3124-6279) /uL Lymph # (Auto) (4453-4760) /uL [place] # (Auto) (0-900) /uL Eos # (Auto) (0-450) /uL Baso # (Auto) (0-100) /uL PT (10.1-12.7) SECONDS INR (0.9-1.3) D-Dimer 830 H (<500) ng/ml Sodium (137-145) mmol/L Potassium (3.4-5.1) mmol/L Chloride (98-107) mmol/L Carbon Dioxide (22-32) mmol/L BUN (7-17) mg/dL Creatinine (0.52-1.04) mg/dL Estimated GFR (>60) mL/min BUN/Creatinine Ratio (6-22) Glucose (80-110) mg/dL Lactate 1.5 (0.7-2.1) mmol/L Calcium (8.4-10.2) mg/dL Total Bilirubin (0.2-1.3) mg/dL AST (14-36) IU/L ALT (<35) IU/L Alkaline Phosphatase (38-126) U/L Total Creatine Kinase 31 (30-135) U/L CK-MB (CK-2) TNP CK-MB (CK-2) Rel Index TNP Troponin I < 0.012 (0.01-0.034) ng/mL NT-Pro-B Natriuret Pep (<125) pg/mL Total Protein (6.3-8.2) g/dL Albumin (3.5-5.0) g/dL Globulin (1.7-4.1) g/dL Albumin/Globulin Ratio (1.0-2.8) Procalcitonin (<0.5) ng/mL Chlamy pneumoniae PCR (Not Detect) Adenovirus (PCR) (Not Detect) B. pertussis DNA (PCR) (Not Detecte) B.parapertussis DNA PCR (Not Detecte) Coronavirus OC43 (PCR) (Not Detect) Coronavirus HKU1 (PCR) (Not Detect) Coronavirus 229E (PCR) (Not Detect) SARS-CoV-2 (PCR) (Not Detecte) Coronavirus NL63 (PCR) (Not Detect) Human Metapneumovir PCR (Not Detect) Influenza Type A (PCR) (Not Detect) Influenza Type B (PCR) (Not Detect) M. pneumoniae (PCR) (Not Detect) Parainfluenza 1 (PCR) (Not Detect) Parainfluenza 2 (PCR) (Not Detect) Parainfluenza 3 (PCR) (Not Detect) Parainfluenza 4 (PCR) (Not Detect) RSV (PCR) (Not Detect) Entero/Rhino (PCR) (Not Detect) 07/19/22 07/19/22 Range/Units 13:53 13:55 WBC (4.5-11.0) X10^3/uL RBC (4.0-5.2) X10^6/uL Hgb (12.0-16.0) g/dL Hct (36-46) % MCV (80-100) fL MCH (26-34) PG MCHC (30-36) % RDW (11.6-14.8) % Plt Count (150-400) X10^3/uL Neut % (Auto) (50-75) % Lymph % (Auto) (25-40) % [place] % (Auto) (3-14) % Eos % (Auto) (2-4) % Baso % (Auto) (0-2) % Neut # (Auto) (4936-1946) /uL Lymph # (Auto) (3833-5227) /uL [place] # (Auto) (0-900) /uL Eos # (Auto) (0-450) /uL Baso # (Auto) (0-100) /uL PT (10.1-12.7) SECONDS INR (0.9-1.3) D-Dimer (<500) ng/ml Sodium (137-145) mmol/L Potassium (3.4-5.1) mmol/L Chloride (98-107) mmol/L Carbon Dioxide (22-32) mmol/L BUN (7-17) mg/dL Creatinine (0.52-1.04) mg/dL Estimated GFR (>60) mL/min BUN/Creatinine Ratio (6-22) Glucose (80-110) mg/dL Lactate (0.7-2.1) mmol/L Calcium (8.4-10.2) mg/dL Total Bilirubin (0.2-1.3) mg/dL AST (14-36) IU/L ALT (<35) IU/L Alkaline Phosphatase (38-126) U/L Total Creatine Kinase (30-135) U/L CK-MB (CK-2) CK-MB (CK-2) Rel Index Troponin I (0.01-0.034) ng/mL NT-Pro-B Natriuret Pep (<125) pg/mL Total Protein (6.3-8.2) g/dL Albumin (3.5-5.0) g/dL Globulin (1.7-4.1) g/dL Albumin/Globulin Ratio (1.0-2.8) Procalcitonin 0.06 (<0.5) ng/mL Chlamy pneumoniae PCR Not detected (Not Detect) Adenovirus (PCR) Not detected (Not Detect) B. pertussis DNA (PCR) Not detected (Not Detecte) B.parapertussis DNA PCR Not detected (Not Detecte) Coronavirus OC43 (PCR) Not detected (Not Detect) Coronavirus HKU1 (PCR) Not detected (Not Detect) Coronavirus 229E (PCR) Not detected (Not Detect) SARS-CoV-2 (PCR) Not detected (Not Detecte) Coronavirus NL63 (PCR) Not detected (Not Detect) Human Metapneumovir PCR Not detected (Not Detect) Influenza Type A (PCR) Not detected (Not Detect) Influenza Type B (PCR) Not detected (Not Detect) M. pneumoniae (PCR) Not detected (Not Detect) Parainfluenza 1 (PCR) Not detected (Not Detect) Parainfluenza 2 (PCR) Not detected (Not Detect) Parainfluenza 3 (PCR) Not detected (Not Detect) Parainfluenza 4 (PCR) Not detected (Not Detect) RSV (PCR) Not detected (Not Detect) Entero/Rhino (PCR) Detected H (Not Detect) Discharge Plan Departure Patient Disposition: Home Clinical Impression: Rhinovirus, Breath shortness, Acute exacerbation of chronic obstructive pulmonary disease Activity Restrictions/Additional Instructions: Thank you for coming to the [facility] Emergency Department today. Your chest x-ray and CT scan showed mild atelectasis to the right side which may be causing increased shortness of breath you are experiencing. Please use the inhaler spirometry device given to to help treat this. Your lab work was otherwise unremarkable. UA did not have elevated white count as we discussed. Your labs tests for any kind of heart attack was unremarkable as well. Please take the antibiotics as prescribed and use the inhaler spirometry to help with your symptoms. Please follow-up with the primary care provider for further evaluation. Due to the extended history of smoking he may have developed some kind of COPD. I hope you feel better soon. Prescriptions: No Action loratadine [Claritin] 10 MG tablet 10 mg PO QDAY Qty: 0 LIDOCAINE 1 patch Topical SEE INSTRUCTIONS Qty: 30 2RF loperamide [Imodium A-D] 2 mg capsule 2 mg PO TID PRN (Reason: loose stool) Qty: 90 0RF Rx Instructions: max 2-3 times a day; limit as possible ipratropium-albuterol 0.5 mg-3 mg(2.5 mg base)/3 mL solution for nebulization 3 ml inhalation QID PRN (Reason: shortness of breath or wheezing) Qty: 180 0RF levothyroxine 150 mcg tablet 150 mcg PO .COMPLEX Rx Instructions: 150 mcg orally *Mon, Wed, Fri I take 150 mcg + an additional 1/2 tab; pyridostigmine bromide [Mestinon] 60 mg tablet 60 mg PO .COMPLEX Rx Instructions: 60 mg orally take a 30 mg tab daily and an additional 30-60 mg tab as needed for MG symptoms; not to exceed 120 mg/day; zolpidem [Ambien] 10 mg tablet See Rx Instructions PO BEDTIME PRN (Reason: Insomnia) Label Comments: Take 1/2 - 1 tablet as needed for insomnia Rx Instructions: orally bedtime PRN; Take 1/2 - 1 tablet as needed for insomnia ipratropium bromide 42 mcg (0.06 %) spray,non-aerosol 2 spray intranasal QID Rx Instructions: administer into each nostril fluticasone propionate 50 mcg/actuation spray,suspension 2 spray intranasal BID Rx Instructions: administer into each nostril Zinc 15 with copper 1 tab PO DAILY cholecalciferol (vitamin D3) 125 mcg (5,000 unit) capsule 125 mcg PO DAILY quercetin 500 mg capsule 500 mg PO DAILY lorazepam 1 mg tablet 1 mg PO BID PRN lysine 600 mg tablet 600 mg PO DAILY ibuprofen 200 mg capsule 400 mg PO Q8H PRN fish,bora,flax oils-om3,6,9no1 1 cap PO DAILY ondansetron 4 mg tablet,disintegrating 8 mg PO BID Label Comments: DISSOLVE 2 TABLETS IN MOUTH TWICE DAILY acetaminophen-codeine 300-30 mg tablet 1 tab PO DAILY PRN metoprolol tartrate 25 mg tablet 25 mg PO BID metformin 500 mg tablet 500 mg PO BID (DME) OneTouch Ultra Test Strip See Rx Instructions .ROUTE .MEDSUPPLY Qty: 10 Label Comments: USE 1 STRIP TO CHECK GLUCOSE NEEDED Rx Instructions: As directed (DME) lancets [OneTouch Delica Plus Lancet] 33 gauge misc See Rx Instructions .ROUTE .MEDSUPPLY Qty: 100 Label Comments: USE DIRECTED Rx Instructions: As directed aspirin 81 mg tablet,delayed release (DR/EC) 81 mg PO DAILY furosemide 20 mg tablet 20 mg PO DAILY PRN nicotine 7 mg/24 hr patch 24 hour 1 patch transdermal Q24H Qty: 28 1RF Referrals: Genaro Kee MD [Primary Care Provider] - Visit Report Forms: Patient Portal/API <Nils Topete MD - Last Filed: 08/01/22 22:23> Cosign ED Attending Cosignature Attestation: I was immediately available in the department for consultation. ?This documentation has been reviewed and I agree with assessment and plan. Supervised by Nils Topete MD
[2022-07-19 14:32] LABS: Troponin I < 0.012 ng/mL (0.01-0.034)
[2022-07-19 14:40] LABS: D Dimer 830 ng/ml (<500)
--- NOTE | 2022-07-19 14:46 | DI.CT.S_ITS ---
PROCEDURE: CT ANGIO CHEST PE PROTOCOL INDICATIONS: SOB w/ elevated D Dimer TECHNIQUE: After the administration of intravenous contrast, 2 mm thick sections acquired from the pulmonary apices to the posterior costophrenic angles. 3-dimensional maximum intensity projection (MIP) coronal and sagittal reformats were then acquired through the thorax. For radiation dose reduction, the following was used: automated exposure control, adjustment of mA and/or kV according to patient size. COMPARISON: [facility], CT, PE STUDY (CTA CHEST), 12/21/2013, 9:04. [facility], CT, CT CHEST WO CON, 04/18/2021, 14:03. FINDINGS: Image quality: Excellent. Pulmonary arteries: Pulmonary arteries are normal in size, and demonstrate no intraluminal filling defects to suggest central pulmonary embolism. Lungs and pleura: Patchy opacities are noted within the right upper and middle lobes. Left upper lobe nodule measuring 6 mm is present on series 5, image 107 unchanged since 2013 and likely benign Mediastinum: Heart size is normal, without pericardial effusion. Multiple bilateral lymph nodes are present, some borderline enlarged in size but overall unchanged. There is a prominent right hilar lymph node which has been stable since 2013 as well as a similar although less prominent left hilar lymph node, also stable. Thoracic aorta is normal in caliber and enhancement. Esophagus is normal in caliber, without hiatal hernia. Bones and chest wall: No suspicious bony lesions. Ribs and thoracic spine appear intact throughout. Thyroid gland is not well visualized. No axillary or supraclavicular adenopathy. Soft tissue density is noted within the right progressed measuring approximately 2.6 cm this is unchanged compared to 2020 but is not visualized on prior exam in 2013. Abdomen: Low-attenuation foci are present within the liver appearing suggestive of simple cysts. There are more posterior areas demonstrate partial enhancement, unchanged and possibly related to hemangiomas. Otherwise, visualized upper abdominal solid organs appear normal in the early arterial phase of enhancement. IMPRESSION: No pulmonary embolism. Patchy right lobe opacities likely related atelectasis. Underlying developing pneumonia cannot be definitively excluded. Stable appearance of mediastinal and hilar lymph nodes compared to 2013. Soft tissue mass within the right breast stable since 2020 but new since 2013. Recommend mammogram follow-up as malignancy cannot be definitively excluded. Dictated by: Yani Monzon M.D. on 07/19/2022 at 15:28 Approved by: Yani Monzon M.D. on 07/19/2022 at 15:38
[2022-07-19 14:59] LABS: Adenovirus Not Detected (Not Detect); B. parapertussis Not Detected (Not Detecte); Bordetella pertussis Not Detected (Not Detecte); Chlamydophila pneumoniae Not Detected (Not Detect); Coronavirus 229E Not Detected (Not Detect); Coronavirus HKU1 Not Detected (Not Detect); Coronavirus NL 63 Not Detected (Not Detect); Coronavirus OC43 Not Detected (Not Detect); Human Metapneumovirus Not Detected (Not Detect); Human Rhinovirus/Enterovirus Detected (Not Detect); Influenza A Not Detected (Not Detect); Influenza B Not Detected (Not Detect); Mycoplasma pneumoniae Not Detected (Not Detect); Parainfluenza Virus 1 Not Detected (Not Detect); Parainfluenza Virus 2 Not Detected (Not Detect); Parainfluenza Virus 3 Not Detected (Not Detect); Parainfluenza Virus 4 Not Detected (Not Detect); Respiratory Syncytial Virus Not Detected (Not Detect); SARS- CoV-2 Not Detected (Not Detecte)
[2022-07-19] MEDS: ALBUTEROL/IPRATROPIUM 3 ML AMPUL INH (17:00)
[2022-07-19] MEDS: methylPREDNISolone 125 MG/2 ML VIAL IV (17:36)
--- NOTE | 2022-07-19 17:48 | RT ---
pt jaki neb tx well, states she wears home O2@2-3 lpm nc. Pt states relieve with neb tx and tx given with air
--- NOTE | 2022-07-19 19:41 | PC.NURSE ---
At approximately 1845 pt stating wishes to leave, Rasheed ACKERMAN and Alexis RN spoke to pt concerning condition and indications for staying inpatient. After some time pt and agree to continue care. Wheelchair provided r/t pt reporting back pain making the stretcher too uncomfortable. Pt and updated again on plan prior to leaving, pt reports agreement to stay for care.
[2022-07-19] MEDS: AZITHROMYCIN 250 MG TABLET 500 MG PO (20:34)
[2022-07-19 20:39] LABS: Procalcitonin 0.06 ng/mL (<0.5)
--- NOTE | 2022-07-19 22:43 | PC.NURSE ---
Discharge delayed r/t pt having difficulty obtaining a ride home and requiring oxygen. Pt has oxygen cannister from home with approximately 2 hours of oxygen on it at her current 4L. Pt reported unable to pay for a taxi and ER unable to provide voucher r/t local taxi company denying ride. NWA option explored but pt able to find a local friend instead who can drive her home after work at approximately 2300.
== END 2022-07-19 23:31 | disposition home or self-care (01) ==
PROVIDERS: Emergency Medicine; Emergency Provider Physician Assistant Medical; PCP Pediatrics
DX: J44.1 Chronic obstructive pulmonary disease with (acute) exacerbation (principal); B34.8 Other viral infections of unspecified site; R06.02 Shortness of breath; Z20.822 Contact with and (suspected) exposure to COVID-19
CPT/HCPCS: 36415; 71046; 71275; 80053; 82550; 83605; 83880; 84145; 84484; 85025; 85379; 85610; 87633; 93005; 94640; 96374; 99284; 99285; J2930; Q9967

== ENCOUNTER → 2022-10-30 09:39 | Outpatient (CLI) | payer OTHER, SELFPAY ==
--- NOTE | 2022-10-30 | DI.NM.S_ITS ---
PROCEDURE: NM JJ PERF SPECT R&S PHARM Rest and pharmacological stress myocardial perfusion SPECT with gated imaging and ejection fraction RADIOPHARMACEUTICAL: 26.3 mCi Tc-99m tetrafosmin IV at rest and 25.2 mCi Tc-99m tetrafosmin IV at peak effect of pharmacological stress. Fit-soq-neznmnqi was performed. INDICATIONS: chest pain unspecified TECHNIQUE: Radiopharmaceutical was injected at peak stress test, and also at rest. SPECT images were obtained. SPECT myocardial perfusion images were displayed in short axis, horizontal long axis, and vertical long axis views. Gated images were reviewed using Ninjathat software. COMPARISON: None. CARDIAC STRESS: A pharmacologic stress test was performed under the supervision of an attending staff, using an infusion of lexiscan 0.4mg IV X1. Hemodynamic data: There is normal blood pressure and heart rate response to pharmacologic stress. Symptoms: The patient denied anginal chest pain. Aminophylline: none EKG: No diagnostic changes of ischemia; no ectopy. FINDINGS: Raw data: There is good myocardial uptake of radiotracer. No significant motion artifacts. Awel-wp-oajpz ratio is 0.34 (normal is less than 0.38 for tetrafosmin tracer). Left ventricle function: Gated images demonstrate normal left ventricular wall thickening. No segmental wall motion abnormalities. No transient ischemic dilation; TID is 1.26 (normal less than 1.3). Left ventricle resting end diastolic volume is 91 mL. Left ventricle stress ejection fraction is 78%; normal range is above 45%. Myocardial perfusion: There is a moderately intense small apical fixed defect consistent with either apical thinning artifact or prior non-transmural [place]. No ischemia. SSS 1. Prone images not obtained as patient unable. IMPRESSION: Abnormal nuclear stress test consistent with artifact or prior non-transmural [place]. No ischemia. 1) There is a moderately intense small apical fixed defect consistent with either apical thinning artifact or prior non-transmural [place]. No ischemia. Prone images not obtained as patient unable. SSS 1. 2) Normal left ventricular size, wall motion, and systolic function (EF post stress 78%). 3) No angina during the study. 4) No diagnostic ST changes with lexiscan. 5) Compared to the nuclear stress test 12/22/2013, the perfusion defect described above is new on this study. Dictated by: Malcolm Ferrell MD on 11/01/2022 at 14:32 Approved by: Malcolm Ferrell MD on 11/01/2022 at 14:35
[2022-10-30 10:44] LABS: COVID19 -Nasal RAPID Negative (Negative)
== END ==
PROVIDERS: PCP Family Medicine; Referring Provider Internal Medicine Cardiovascular Disease; Visit Provider Internal Medicine Cardiovascular Disease
DX: R94.39 Abnormal result of other cardiovascular function study (principal); R07.9 Chest pain, unspecified; R06.02 Shortness of breath; I44.7 Left bundle-branch block, unspecified; Z20.822 Contact with and (suspected) exposure to COVID-19
CPT/HCPCS: 78452; 87635; 93017; A9502; J2785

== ENCOUNTER → 2022-10-31 13:33 | Outpatient (CLI) | payer OTHER, SELFPAY ==
--- NOTE | 2022-10-31 | DI.ECHO.S_ITS ---
[place]---------+ [facility] +---------+ : : [address] : : : : [id number] : : : : Phone: [phone]+ Echocardiogram Report + + :Name: BOSTON JORDAN Study Date: 10/31/2022 Height: 62 in : :[facility] ReadingLocation: Weight: 200 lb : : Gender: Female BSA: 1.9 m2 : :: 1950 Age: 72 yrs BP: 121/68 mmHg: :Reason For Study: CHEST PAIN : :Ordering Physician: NATHEN, : :PEYMAN Performed By: Marissa Redmond : :Referring: PEYMAN FERRELL : + + Interpretation Summary 1) Normal left ventricular thickness, size, wall motion, and systolic function (EF 60-65%). 2) Normal right ventricular size and function. 3) There is mild mitral regurgitation. 4) Incidental finding of a large hepatic cyst. 5) Compared to the Echo done 02/09/2021, no significant change. Procedure: A two-dimensional transthoracic echocardiogram with color flow and Doppler was performed. The study quality was technically difficult. Comparison is made with the echocardiogram of 02/09/2021. A contrast injection of Definity was performed to improve assessment of LV function. Contrast was injected into an intravenous site in the right arm. The patient was in sinus rhythm with heart rates between 58-66 bpm during the exam. Left Ventricle: The left ventricle is normal in size and wall thickness. The ejection fraction is estimated to be 60-65%. Left ventricular systolic function appears normal without focal wall motion abnormalities. Diastolic function could not be accurately assessed due to contradictory data. Right Ventricle: The right ventricle is normal in size and function. Atria: The left atrial size is normal. Right atrial size is normal. There is no Doppler evidence for an interatrial shunt. Mitral Valve: The mitral valve is normal in structure and function. There is mild mitral regurgitation. Aortic Valve: The aortic valve is not well visualized. The aortic valve is grossly normal. There is no aortic valve stenosis. No aortic regurgitation is present. Tricuspid Valve: The tricuspid valve is normal in structure and function. There is trace tricuspid regurgitation. The right ventricular systolic pressure is estimated to be at least 36 mmHg based on an estimated right atrial pressure of 3 mm Hg. Pulmonic Valve: The pulmonic valve is not well seen, but is grossly normal. There is no pulmonic valvular regurgitation. Great Vessels: The aortic root is normal size. The dimensions of the ascending aorta are normal. The IVC is of normal diameter and collapses greater than 50% with a sniff. This suggests a low right atrial pressure of 3 mm Hg. Pericardium/ Pleura There is no pericardial effusion. There is no pleural effusion. MMode/2D Measurements & Calculations LVIDd: 3.9 cm LVOT diam: 2.1 cm LVIDs: 2.6 cm Ao root diam: 2.8 cm FS: 34.9 % asc Aorta Diam: 3.4 cm IVSd: 1.1 cm LVPWd: 0.99 cm LV garcia. diameter/BSA (cm/m^2): 2.1 LV sys. diameter/BSA (cm/m^2): 1.3 LA A2 area: 17.7 cm2 RA long axis: 5.5 cm LA A4 area: 20.2 cm2 RA area: 16.2 cm2 LA length (vol): 5.8 cm RA vol: 40.8 ml LA vol: 52.1 ml RA : 21.3 ml/m2 LA vol index: 27.2 ml/m2 IVC diam: 1.3 cm RVD1 (basal): 3.7 cm RVD2 (mid): 2.7 cm TAPSE: 2.1 cm Doppler Measurements & Calculations Ao V2 max: 152.5 cm/sec LVOT Max Alonzo: 101.4 cm/sec Ao V2 mean: 106.5 cm/sec LV V1 max P.1 mmHg Ao max P.3 mmHg LV V1 VTI: 25.8 cm Ao mean P.0 mmHg SHANTA(I,D): 2.8 cm2 Ao V2 VTI: 32.8 cm SHANTA(V,D): 2.3 cm2 sev ratio: 0.78 SHANTA indexed to BSA (cm^2/m^2): 1.4 MV E max alonzo: 82.1 cm/sec TR max alonzo: 287.5 cm/sec MV A max alonzo: 99.7 cm/sec TR max P.1 mmHg MV E/A: 0.82 PA V2 max: 98.3 cm/sec Med Peak E' Alonzo: 4.4 cm/sec PA V2 mean: 71.4 cm/sec E/E' med: 18.5 PA mean P.2 mmHg Lat Peak E' Alonzo: 5.8 cm/sec PA pr(Accel): 37.9 mmHg E/E' lat: 14.3 E/e' average: 16.4 MV dec time: 0.33 sec SV(OT): 90.9 ml Reading Physician:11:43 AM
== END ==
PROVIDERS: PCP Family Medicine; Referring Provider Internal Medicine Cardiovascular Disease; Visit Provider Internal Medicine Cardiovascular Disease
DX: R07.9 Chest pain, unspecified (principal); I34.0 Nonrheumatic mitral (valve) insufficiency
CPT/HCPCS: 93306; Q9957

== ENCOUNTER → 2022-11-21 14:41 | Outpatient (CLI) | payer OTHER, SELFPAY ==
[2022-11-21 15:47] LABS: Hematocrit 45.4 % (36-46); Hemoglobin 15.2 g/dL (12.0-16.0); Mean Corpuscular HGB Conc 33.5 % (30-36); Mean Corpuscular Hemoglobin 30.3 PG (26-34); Mean Corpuscular Volume 90.6 fL (80-100); Platelet Count 202 X10^3/uL (150-400); Red Blood Cell Count 5.01 X10^6/uL (4.0-5.2); Red Cell Distribution Width 14.9 % (11.6-14.8); White Blood Cell Count 11.1 X10^3/uL (4.5-11.0)
[2022-11-21 16:01] LABS: Hemoglobin A1C% w Est Avg Glu 6.2 % (4.0-6.0)
[2022-11-21 16:24] LABS: Alanine Aminotransferase 30 IU/L (<35); Albumin 4.2 g/dL (3.5-5.0); Albumin Globulin Ratio 1.2 (1.0-2.8); Alkaline Phosphatase 164 U/L (38-126); Aspartate Aminotransferase 34 IU/L (14-36); BUN Creatinine Ratio 22.2 (6-22); Bilirubin Total 0.6 mg/dL (0.2-1.3); Blood Urea Nitrogen 16 mg/dL (7-17); Calcium 9.4 mg/dL (8.4-10.2); Carbon Dioxide 25 mmol/L (22-32); Chloride 106 mmol/L (98-107); Cholesterol 125 mg/dL (140-199); Estimated Glomerular Filt Rate > 60 mL/min (>60); Globulin 3.5 g/dL (1.7-4.1); Glucose 128 mg/dL (80-110); HDL Cholesterol 27 mg/dL (40-60); HEMOLYSIS < 15 (0-50); LDL Cholesterol Calculated 24 mg/dL (<100); Potassium 3.7 mmol/L (3.4-5.1); Sodium 140 mmol/L (137-145); Total Protein 7.7 g/dL (6.3-8.2); Triglycerides 370 mg/dL (35-150)
[2022-11-21 16:32] LABS: NT-proBNP (BNP-Adult 18+) 136 pg/mL (<125)
[2022-11-21 16:52] LABS: TSH w/ Reflex to FT4 1.58 uIU/mL (0.47-4.68)
== END ==
PROVIDERS: PCP Family Medicine; Referring Provider Internal Medicine; Visit Provider Internal Medicine
DX: E11.9 Type 2 diabetes mellitus without complications (principal)
CPT/HCPCS: 36415; 80053; 80061; 83036; 83880; 84443; 85027

== ENCOUNTER 2022-12-18 11:44 | Emergency (ER) | payer OTHER, SELFPAY ==
[2022-12-18] VITALS (12 sets, daily range): BP systolic 130–140; BP diastolic 61–88; PULSE 67–81; RESP 22; TEMP 36.8; O2SAT 90–97; BMI 35.6
--- NOTE | 2022-12-18 12:12 | DI.RAD.S_ITS ---
PROCEDURE: XR CHEST 1V INDICATIONS: Shortness of breath TECHNIQUE: One view of the chest was acquired. COMPARISON: [facility], CR, XR CHEST 2V, 07/19/2022, 13:59. [facility], CR, XR CHEST 2V, 11/24/2020, 11:22. FINDINGS: Surgical changes and devices: None. Lungs and pleura: Increased pulmonary markings. Peribronchial cuffing. Mediastinum: Probable cardiomegaly. Bones and chest wall: No suspicious bony lesions. Overlying soft tissues appear unremarkable. IMPRESSION: Suspect mild interstitial edema, given increased pulmonary markings and peribronchial cuffing. Dictated by: Juventino Latham M.D. on 12/18/2022 at 13:27 Approved by: Juventino Latham M.D. on 12/18/2022 at 13:28
[2022-12-18 12:57] LABS: Add Manual Diff / Slide Review NO; Basophils Absolute Auto 0 /uL (0-100); Basophils Percent Auto 0.3 % (0-2); Eosinophils Absolute Auto 0 /uL (0-450); Eosinophils Percent Auto 0.1 % (2-4); Hematocrit 46.3 % (36-46); Hemoglobin 15.7 g/dL (12.0-16.0); Lymphocytes Absolute Auto 2800 /uL (1100-4500); Mean Corpuscular HGB Conc 33.9 % (30-36); Mean Corpuscular Hemoglobin 30.2 PG (26-34); Mean Corpuscular Volume 89.1 fL (80-100); Monocytes Absolute Auto 800 /uL (0-900); Monocytes Percent Auto 6.7 % (3-14); Neutrophils Absolute Auto 8600 /uL (1500-7000); Neutrophils Percent Auto 69.9 % (50-75); Platelet Count 217 X10^3/uL (150-400); Red Blood Cell Count 5.19 X10^6/uL (4.0-5.2); Red Cell Distribution Width 14.7 % (11.6-14.8); White Blood Cell Count 12.3 X10^3/uL (4.5-11.0)
[2022-12-18 13:14] LABS: Alanine Aminotransferase 34 IU/L (<35); Albumin 4.5 g/dL (3.5-5.0); Albumin Globulin Ratio 1.3 (1.0-2.8); Alkaline Phosphatase 184 U/L (38-126); Aspartate Aminotransferase 30 IU/L (14-36); BUN Creatinine Ratio 18.4 (6-22); Bilirubin Total 0.7 mg/dL (0.2-1.3); Blood Urea Nitrogen 14 mg/dL (7-17); Calcium 9.8 mg/dL (8.4-10.2); Carbon Dioxide 27 mmol/L (22-32); Chloride 104 mmol/L (98-107); Estimated Glomerular Filt Rate > 60 mL/min (>60); Globulin 3.4 g/dL (1.7-4.1); Glucose 142 mg/dL (80-110); HEMOLYSIS < 15 (0-50); Potassium 4.2 mmol/L (3.4-5.1); Sodium 138 mmol/L (137-145); Total Protein 7.9 g/dL (6.3-8.2)
[2022-12-18 13:15] LABS: Lactate (Lactic Acid) 1.8 mmol/L (0.7-2.1)
[2022-12-18 13:26] LABS: NT-proBNP (BNP-Adult 18+) 91 pg/mL (<125); Troponin I < 0.012 ng/mL (0.01-0.034)
--- NOTE | 2022-12-18 14:26 | ED_ITS ---
HPI - SOB/Dyspnea <Jeovanny Rios PA-C - Last Filed: 12/18/22 20:02> General Chief Complaint: Shortness of Breath/Dyspnea Stated Complaint: SOB, back pain while coughing/breathing Time Seen by Provider: 12/18/22 13:29 Source: patient Mode of arrival: Wheelchair Limitations: no limitations History of Present Illness HPI Narrative: 72-year-old female with past medical history myasthenia gravis, diabetes, COPD, hyperlipidemia presents to the ED with 6 days of upper back pain. Patient states that the entire posterior thoracic region is painful when she coughs, moves, twists. Patient denies any trauma. Patient denies fever, chills, chest pain, shortness of breath, vomiting, abdominal pain, dysuria, lightheadedness, dizziness, syncope. Patient states that she has baseline mild nausea ever since she was diagnosed with myasthenia gravis last year, and that has remained unchanged. Patient has a upcoming lumpectomy, has therefore been unable to take ibuprofen until after the surgery. Patient states that she would normally take Tylenol with codeine and ibuprofen with good relief for this pain. Patient states she is had this pain since July 2022, it waxes and wanes. Patient al so tried taking Robaxin with no relief. Related Data Home Medications Medication Instructions Recorded Confirmed loratadine 10 mg tablet (Claritin) 10 mg PO QDAY ##0 11/21/12 12/11/22 levothyroxine 150 mcg tablet 150 mcg PO .COMPLEX 06/28/22 12/20/22 pyridostigmine bromide 60 mg 60 mg PO 06/28/22 12/11/22 tablet (Mestinon) Zinc 15 with copper 1 tab PO DAILY 07/27/22 12/11/22 acetaminophen 300 mg-codeine 30 mg 1 - 2 tab PO QID PRN Pain 07/27/22 12/20/22 tablet aspirin 81 mg tablet,delayed 81 mg PO DAILY 07/27/22 12/20/22 release blood sugar diagnostic (OneTouch #10 ea 07/27/22 12/11/22 Ultra Test strips) cholecalciferol (vitamin D3) 125 125 mcg PO DAILY 07/27/22 12/20/22 mcg (5,000 unit) capsule fish,bora,flax oils-om3,6,9no1 1 cap PO DAILY 07/27/22 12/11/22 fluticasone propionate 50 2 spray intranasal BID 07/27/22 12/11/22 mcg/actuation nasal spray,suspension furosemide 20 mg tablet 20 mg PO DAILY PRN 07/27/22 12/11/22 ibuprofen 200 mg capsule 400 mg PO Q8H PRN 07/27/22 12/11/22 ipratropium bromide 42 mcg (0.06 2 spray intranasal QID 07/27/22 12/20/22 %) nasal spray lancets 33 gauge (CalBillyuch Deldavid #100 ea 07/27/22 12/11/22 Plus Lancet) lorazepam 1 mg tablet 1 mg PO BID PRN Anxiety 07/27/22 12/20/22 lysine 600 mg tablet 600 mg PO DAILY 07/27/22 12/11/22 ondansetron 4 mg disintegrating 8 mg PO BID 07/27/22 12/11/22 tablet quercetin 500 mg capsule 500 mg PO DAILY 07/27/22 12/11/22 zolpidem 10 mg tablet (Ambien) See Rx Instructions PO BEDTIME PRN 07/27/22 12/11/22 Insomnia empagliflozin 10 mg tablet 10 mg PO DAILY 11/21/22 12/20/22 (Jardiance) metformin 850 mg tablet 850 mg PO BID 11/21/22 12/20/22 metoprolol tartrate 50 mg tablet 50 mg PO BID 11/21/22 12/20/22 rosuvastatin 5 mg tablet 5 mg PO DAILY 11/21/22 12/20/22 spironolactone 25 mg tablet 25 mg PO DAILY 11/21/22 12/20/22 Previous Rx's Medication Instructions Recorded LIDOCAINE 1 patch topical SEE INSTRUCTIONS 02/05/13 ##30 loperamide 2 mg capsule (Imodium 2 mg PO TID PRN loose stool #90 06/29/22 A-D) caps nicotine 7 mg/24 hr daily 1 patch transdermal Q24H #28 ea 07/27/22 transdermal patch ipratropium 0.5 mg-albuterol 3 mg 3 ml inhalation QID PRN shortness 12/13/22 (2.5 mg base)/3 mL nebulization of breath or wheezing #1,080 mL soln Allergies Allergy/AdvReac Type Severity Reaction Status Date / Time amoxicillin Allergy Severe Hives Verified 12/11/22 14:56 oxycodone [From Percocet] Allergy Intermediate ITCHING Verified 12/11/22 14:56 bupropion [From Zyban] AdvReac Intermediate tachycardia Verified 12/11/22 14:56 clindamycin AdvReac Intermediate jaw pain Verified 12/11/22 14:56 hydrocodone [From [place]] AdvReac Intermediate hyper Verified 12/11/22 14:56 oxymetazoline AdvReac Intermediate cold Verified 12/11/22 14:56 [From Afrin (oxymetazoline)] sweats, gi upset venlafaxine [From Effexor] AdvReac Intermediate Agitated Verified 12/11/22 14:56 Review of Systems <Jeovanny Rios PA-C - Last Filed: 12/18/22 20:02> Review of Systems ROS Unobtainable: All systems reviewed & are unremarkable except as noted in HPI and below Constitutional Constitutional: Denies chills, Denies fatigue, Denies fever(s), Denies frequent falls, Denies lethargy and Denies weakness Eyes Eyes: Denies change in vision, Denies eye discharge, Denies irritation and Denies loss of vision ENT Ears, Nose, Mouth, and Throat: Denies change in voice, Denies dizziness, Denies neck pain, Denies sore throat and Denies throat swelling Cardiovascular Cardiovascular: Denies chest pain, Denies irregular heart rhythm, Denies lightheadedness, Denies palpitations, Denies dyspnea, Denies dyspnea on exertion and Denies orthopnea Respiratory Respiratory: Denies cough, Denies dyspnea, Denies dyspnea on exertion and Denies wheezing Gastrointestinal Gastrointestinal: Denies abdominal pain, Denies change in bowel habits, Denies diarrhea, Denies nausea and Denies vomiting Genitourinary Genitourinary: Denies hematuria, Denies flank pain, Denies urinary incontinence and Denies urinary urgency Musculoskeletal Musculoskeletal: Reports back pain, Denies muscle weakness, Denies neck pain, Denies numbness and Denies tingling Integumentary/Breasts Skin/Breast: Denies pruritus, Denies erythema, Denies rash and Denies wounds Neurologic Neurologic: Denies behavioral changes, Denies confusion, Denies dizziness, Denies frequent falls, Denies loss of vision, Denies numbness, Denies tingling and Denies weakness Psychiatric Psychiatric: Denies anxiety, Denies behavioral changes, Denies confusion, Denies depression, Denies homicidal ideation and Denies suicidal ideation Endocrine Endocrine: Denies fatigue, Denies flushing and Denies palpitations Hematologic/Lymphatic Hematologic/Lymphatic: Denies easy bruising Allergic/Immunologic Allergic/Immunologic: Denies urticaria, Denies throat swelling and Denies wheezing Patient History <Jeovanny Rios PA-C - Last Filed: 12/18/22 20:02> Medical History (Updated 12/20/22 @ 11:56 by Lisa Walters RN) Ankle pain Anxiety (~2010) Arthritis ASHD (arteriosclerotic heart disease) Breast cancer, right CAD (coronary artery disease) Cervical spine disease Chest pain Chicken pox Chronic back pain Chronic diastolic heart failure Chronic respiratory failure with hypoxia COPD (chronic obstructive pulmonary disease) Diabetes Difficulty swallowing Disease of spine Edema Foot pain History of respiratory failure HTN (hypertension) LBBB (left bundle branch block) Lump of right breast Measles Myasthenia gravis (~12/2021) Nonsp fernandez skn test wo tb (11/21/12) Osteoporosis Pneumonia due to other specified bacteria (11/21/12) Polycythemia secondary to hypoxia Recurrent sinusitis Scoliosis Shoulder pain Sleep apnea Tobacco use disorder Venous (peripheral) insufficiency Surgical History Anesthesia History of carpal tunnel release History of cholecystectomy (~2008) History of knee surgery (~1999) History of umbilical hernia repair (~2012) S/P right rotator cuff repair (~2011) Family History Father Diabetes mellitus History of heart disease Hypertension Mother Cancer Brother Cancer Sister Myocardial infarction Alcoholism Grandmother Cirrhosis Grandfather Cancer Grandmother No problems noted. Social History household members: spouse Smoking Status: Current every day smoker Tobacco: How many years used: 51 alcohol intake: former substance use type: does not use Smoking Status: Current every day smoker tobacco type: cigarettes Substance Use Type: does not use Exam <Jeovanny Rios PA-C - Last Filed: 12/18/22 20:02> Narrative Exam Narrative: Const General:?cooperative, healthy appearing and comfortable HENNJ Head:?normal to inspection Ears:?hearing grossly normal bilaterally Nose:?external nose normal Face and sinus:?normal facial exam and sinuses nontender Mouth:?oral mucosae normal Throat:?posterior oropharynx normal Eyes General:?appearance normal, both eyes and all related structures Neck Neck:?normal visual inspection and no lymphadenopathy noted Resp Effort & Inspection:?normal respiratory effort Auscultation:?clear to auscultation bilaterally Cardio Rate:?regular rate Rhythm:?regular rhythm Musculoskeletal No midline tenderness to palpation. There is bilateral paraspinal tenderness to palpation. There is full range of motion. Patient is neurovascularly intact. Neuro General:?patient alert, patient awake and patient oriented x3 Initial Vital Signs Initial Vital Signs: Vital Signs Temperature 98.3 F 12/18/22 12:03 Pulse Rate 76 12/18/22 12:03 Respiratory Rate 22 12/18/22 12:03 Blood Pressure 137/82 12/18/22 12:03 Pulse Oximetry 97 12/18/22 12:03 Oxygen Delivery Method Nasal Cannula 12/18/22 12:03 Oxygen Flow Rate 2 12/18/22 12:03 <Nils Topete MD - Last Filed: 12/25/22 08:24> Initial Vital Signs Initial Vital Signs: Vital Signs Temperature 98.3 F 12/18/22 12:03 Pulse Rate 76 12/18/22 12:03 Respiratory Rate 22 12/18/22 12:03 Blood Pressure 137/82 12/18/22 12:03 Pulse Oximetry 97 12/18/22 12:03 Oxygen Delivery Method Nasal Cannula 12/18/22 12:03 Oxygen Flow Rate 2 12/18/22 12:03 Course <Jeovanny Rios PA-C - Last Filed: 12/18/22 20:02> Orders Ordered: Discontinued Medications Lidocaine (Lidocaine Patch 1 Each Adh..Patch) 4 each TOP NOW ONE Stop: 12/18/22 14:19 Last Admin: 12/18/22 14:32 Dose: 4 each Documented By: ISIDRO Vital Signs Vital signs: Vital Signs - 8 hr 12/18/22 12:03 12/18/22 13:22 12/18/22 13:23 Temperature 98.3 F Pulse Rate 76 73 71 Respiratory Rate 22 Blood Pressure 137/82 Pulse Oximetry 97 92 90 L Oxygen Delivery Method Nasal Cannula Oxygen Flow Rate 2 12/18/22 13:23 12/18/22 13:30 12/18/22 14:00 Temperature Pulse Rate 76 74 Respiratory Rate Blood Pressure 130/69 Pulse Oximetry 93 93 Oxygen Delivery Method Nasal Cannula Oxygen Flow Rate 1 12/18/22 14:30 12/18/22 15:00 12/18/22 15:30 Temperature Pulse Rate 71 74 67 Respiratory Rate Blood Pressure Pulse Oximetry 94 94 94 Oxygen Delivery Method Oxygen Flow Rate 12/18/22 16:19 12/18/22 16:20 12/18/22 16:20 Temperature Pulse Rate 81 Respiratory Rate Blood Pressure 140/61 Pulse Oximetry 97 91 Oxygen Delivery Method Oxygen Flow Rate 12/18/22 16:30 12/18/22 16:31 12/18/22 16:31 Temperature Pulse Rate 78 77 Respiratory Rate Blood Pressure 140/88 Pulse Oximetry 93 93 Oxygen Delivery Method Oxygen Flow Rate <Nils Topete MD - Last Filed: 12/25/22 08:24> Orders Ordered: Discontinued Medications Lidocaine (Lidocaine Patch 1 Each Adh..Patch) 4 each TOP NOW ONE Stop: 12/18/22 14:19 Last Admin: 12/18/22 14:32 Dose: 4 each Documented By: ISIDRO Vital Signs Vital signs: Vital Signs - 8 hr 12/18/22 12:03 12/18/22 13:22 12/18/22 13:23 Temperature 98.3 F Pulse Rate 76 73 71 Respiratory Rate 22 Blood Pressure 137/82 Pulse Oximetry 97 92 90 L Oxygen Delivery Method Nasal Cannula Oxygen Flow Rate 2 12/18/22 13:23 12/18/22 13:30 12/18/22 14:00 Temperature Pulse Rate 76 74 Respiratory Rate Blood Pressure 130/69 Pulse Oximetry 93 93 Oxygen Delivery Method Nasal Cannula Oxygen Flow Rate 1 12/18/22 14:30 12/18/22 15:00 12/18/22 15:30 Temperature Pulse Rate 71 74 67 Respiratory Rate Blood Pressure Pulse Oximetry 94 94 94 Oxygen Delivery Method Oxygen Flow Rate 12/18/22 16:19 12/18/22 16:20 12/18/22 16:20 Temperature Pulse Rate 81 Respiratory Rate Blood Pressure 140/61 Pulse Oximetry 97 91 Oxygen Delivery Method Oxygen Flow Rate 12/18/22 16:30 12/18/22 16:31 12/18/22 16:31 Temperature Pulse Rate 78 77 Respiratory Rate Blood Pressure 140/88 Pulse Oximetry 93 93 Oxygen Delivery Method Oxygen Flow Rate MDM - SOB/Dyspnea <Jeovanny Rios PA-C - Last Filed: 12/18/22 20:02> Lab Data 12/18/22 12:48 12/18/22 12:48 Labs: Lab Results 12/18/22 12/18/22 12/18/22 Range/Units 12:15 12:48 12:48 WBC 12.3 H (4.5-11.0) X10^3/uL RBC 5.19 (4.0-5.2) X10^6/uL Hgb 15.7 (12.0-16.0) g/dL Hct 46.3 H (36-46) % MCV 89.1 (80-100) fL MCH 30.2 (26-34) PG MCHC 33.9 (30-36) % RDW 14.7 (11.6-14.8) % Plt Count 217 (150-400) X10^3/uL Neut % (Auto) 69.9 (50-75) % Lymph % (Auto) 23.0 L (25-40) % [place] % (Auto) 6.7 (3-14) % Eos % (Auto) 0.1 L (2-4) % Baso % (Auto) 0.3 (0-2) % Neut # (Auto) 8600 H (1166-6177) /uL Lymph # (Auto) 2800 (8016-4695) /uL [place] # (Auto) 800 (0-900) /uL Eos # (Auto) 0 (0-450) /uL Baso # (Auto) 0 (0-100) /uL PT 12.0 (10.1-12.7) SECONDS INR 1.0 (0.9-1.3) Sodium (137-145) mmol/L Potassium (3.4-5.1) mmol/L Chloride (98-107) mmol/L Carbon Dioxide (22-32) mmol/L BUN (7-17) mg/dL Creatinine (0.52-1.04) mg/dL Estimated GFR (>60) mL/min BUN/Creatinine Ratio (6-22) Glucose (80-110) mg/dL Lactate (0.7-2.1) mmol/L Calcium (8.4-10.2) mg/dL Total Bilirubin (0.2-1.3) mg/dL AST (14-36) IU/L ALT (<35) IU/L Alkaline Phosphatase (38-126) U/L Troponin I (0.01-0.034) ng/mL NT-Pro-B Natriuret Pep (<125) pg/mL Total Protein (6.3-8.2) g/dL Albumin (3.5-5.0) g/dL Globulin (1.7-4.1) g/dL Albumin/Globulin Ratio (1.0-2.8) Chlamy pneumoniae PCR Not detected (Not Detect) Adenovirus (PCR) Not detected (Not Detect) B. pertussis DNA (PCR) Not detected (Not Detecte) B.parapertussis DNA PCR Not detected (Not Detecte) Coronavirus OC43 (PCR) Not detected (Not Detect) Coronavirus HKU1 (PCR) Not detected (Not Detect) Coronavirus 229E (PCR) Not detected (Not Detect) SARS-CoV-2 (PCR) Not detected (Not Detecte) Coronavirus NL63 (PCR) Not detected (Not Detect) Human Metapneumovir PCR Not detected (Not Detect) Influenza Type A (PCR) Not detected (Not Detect) Influenza Type B (PCR) Not detected (Not Detect) M. pneumoniae (PCR) Not detected (Not Detect) Parainfluenza 1 (PCR) Not detected (Not Detect) Parainfluenza 2 (PCR) Not detected (Not Detect) Parainfluenza 3 (PCR) Not detected (Not Detect) Parainfluenza 4 (PCR) Not detected (Not Detect) RSV (PCR) Not detected (Not Detect) Entero/Rhino (PCR) Not detected (Not Detect) 12/18/22 12/18/22 Range/Units 12:48 12:48 WBC (4.5-11.0) X10^3/uL RBC (4.0-5.2) X10^6/uL Hgb (12.0-16.0) g/dL Hct (36-46) % MCV (80-100) fL MCH (26-34) PG MCHC (30-36) % RDW (11.6-14.8) % Plt Count (150-400) X10^3/uL Neut % (Auto) (50-75) % Lymph % (Auto) (25-40) % [place] % (Auto) (3-14) % Eos % (Auto) (2-4) % Baso % (Auto) (0-2) % Neut # (Auto) (2654-7631) /uL Lymph # (Auto) (3921-7292) /uL [place] # (Auto) (0-900) /uL Eos # (Auto) (0-450) /uL Baso # (Auto) (0-100) /uL PT (10.1-12.7) SECONDS INR (0.9-1.3) Sodium 138 (137-145) mmol/L Potassium 4.2 (3.4-5.1) mmol/L Chloride 104 (98-107) mmol/L Carbon Dioxide 27 (22-32) mmol/L BUN 14 (7-17) mg/dL Creatinine 0.76 (0.52-1.04) mg/dL Estimated GFR > 60 (>60) mL/min BUN/Creatinine Ratio 18.4 (6-22) Glucose 142 H (80-110) mg/dL Lactate 1.8 (0.7-2.1) mmol/L Calcium 9.8 (8.4-10.2) mg/dL Total Bilirubin 0.7 (0.2-1.3) mg/dL AST 30 (14-36) IU/L ALT 34 (<35) IU/L Alkaline Phosphatase 184 H (38-126) U/L Troponin I < 0.012 (0.01-0.034) ng/mL NT-Pro-B Natriuret Pep 91 (<125) pg/mL Total Protein 7.9 (6.3-8.2) g/dL Albumin 4.5 (3.5-5.0) g/dL Globulin 3.4 (1.7-4.1) g/dL Albumin/Globulin Ratio 1.3 (1.0-2.8) Chlamy pneumoniae PCR (Not Detect) Adenovirus (PCR) (Not Detect) B. pertussis DNA (PCR) (Not Detecte) B.parapertussis DNA PCR (Not Detecte) Coronavirus OC43 (PCR) (Not Detect) Coronavirus HKU1 (PCR) (Not Detect) Coronavirus 229E (PCR) (Not Detect) SARS-CoV-2 (PCR) (Not Detecte) Coronavirus NL63 (PCR) (Not Detect) Human Metapneumovir PCR (Not Detect) Influenza Type A (PCR) (Not Detect) Influenza Type B (PCR) (Not Detect) M. pneumoniae (PCR) (Not Detect) Parainfluenza 1 (PCR) (Not Detect) Parainfluenza 2 (PCR) (Not Detect) Parainfluenza 3 (PCR) (Not Detect) Parainfluenza 4 (PCR) (Not Detect) RSV (PCR) (Not Detect) Entero/Rhino (PCR) (Not Detect) Urine Dip Bedside Urine Glucose 1000 mg/dl Bedside Urine Bilirubin - Negative Bedside Urine Ketone - Negative Urine Specific [place] 1.010 Bedside Urine Occult Blood - Negative Bedside Urine pH 6.0 Bedside Urine Protein - Negative Bedside Urine Urobilinogen - Negative Bedside Urine Nitrite - Negative Bedside Urine Leukocytes - Negative Esterase MDM Narrative Medical decision making narrative: 72-year-old female with past medical history myasthenia gravis, diabetes, COPD, hyperlipidemia presents to the ED with 6 days of upper back pain. History and Physical exam are reassured reassuring, unlikely COPD exacerbation or PE. Physical exam is very consistent with a musculoskeletal sprain/strain, since patient's pain can be easily reproduced with palpation to bilateral paraspinal regions. Will trial lidocaine patches for the pain. Will also obtain EKG, chest x-ray, labs, troponin, BNP, respiratory panel to rule out any cardiopulmonary issues. Will reassess. Workup largely unremarkable. EKG was sinus rhythm with occasional PVCs, no acute ST-T changes, no axis deviation. Patient's symptoms likely due to a musculoskeletal sprain/strain. Patient agrees to continue her Tylenol with codeine and lidocaine patches for pain relief. ED return precautions were discussed with patient. Patient verbalized understanding. Medical records reviewed: Yes <Nils Topete MD - Last Filed: 12/25/22 08:24> Lab Data Labs: Lab Results 12/18/22 12/18/22 12/18/22 Range/Units 12:15 12:48 12:48 WBC 12.3 H (4.5-11.0) X10^3/uL RBC 5.19 (4.0-5.2) X10^6/uL Hgb 15.7 (12.0-16.0) g/dL Hct 46.3 H (36-46) % MCV 89.1 (80-100) fL MCH 30.2 (26-34) PG MCHC 33.9 (30-36) % RDW 14.7 (11.6-14.8) % Plt Count 217 (150-400) X10^3/uL Neut % (Auto) 69.9 (50-75) % Lymph % (Auto) 23.0 L (25-40) % [place] % (Auto) 6.7 (3-14) % Eos % (Auto) 0.1 L (2-4) % Baso % (Auto) 0.3 (0-2) % Neut # (Auto) 8600 H (0646-0454) /uL Lymph # (Auto) 2800 (2029-8791) /uL [place] # (Auto) 800 (0-900) /uL Eos # (Auto) 0 (0-450) /uL Baso # (Auto) 0 (0-100) /uL PT 12.0 (10.1-12.7) SECONDS INR 1.0 (0.9-1.3) Sodium (137-145) mmol/L Potassium (3.4-5.1) mmol/L Chloride (98-107) mmol/L Carbon Dioxide (22-32) mmol/L BUN (7-17) mg/dL Creatinine (0.52-1.04) mg/dL Estimated GFR (>60) mL/min BUN/Creatinine Ratio (6-22) Glucose (80-110) mg/dL Lactate (0.7-2.1) mmol/L Calcium (8.4-10.2) mg/dL Total Bilirubin (0.2-1.3) mg/dL AST (14-36) IU/L ALT (<35) IU/L Alkaline Phosphatase (38-126) U/L Troponin I (0.01-0.034) ng/mL NT-Pro-B Natriuret Pep (<125) pg/mL Total Protein (6.3-8.2) g/dL Albumin (3.5-5.0) g/dL Globulin (1.7-4.1) g/dL Albumin/Globulin Ratio (1.0-2.8) Chlamy pneumoniae PCR Not detected (Not Detect) Adenovirus (PCR) Not detected (Not Detect) B. pertussis DNA (PCR) Not detected (Not Detecte) B.parapertussis DNA PCR Not detected (Not Detecte) Coronavirus OC43 (PCR) Not detected (Not Detect) Coronavirus HKU1 (PCR) Not detected (Not Detect) Coronavirus 229E (PCR) Not detected (Not Detect) SARS-CoV-2 (PCR) Not detected (Not Detecte) Coronavirus NL63 (PCR) Not detected (Not Detect) Human Metapneumovir PCR Not detected (Not Detect) Influenza Type A (PCR) Not detected (Not Detect) Influenza Type B (PCR) Not detected (Not Detect) M. pneumoniae (PCR) Not detected (Not Detect) Parainfluenza 1 (PCR) Not detected (Not Detect) Parainfluenza 2 (PCR) Not detected (Not Detect) Parainfluenza 3 (PCR) Not detected (Not Detect) Parainfluenza 4 (PCR) Not detected (Not Detect) RSV (PCR) Not detected (Not Detect) Entero/Rhino (PCR) Not detected (Not Detect) 12/18/22 12/18/22 Range/Units 12:48 12:48 WBC (4.5-11.0) X10^3/uL RBC (4.0-5.2) X10^6/uL Hgb (12.0-16.0) g/dL Hct (36-46) % MCV (80-100) fL MCH (26-34) PG MCHC (30-36) % RDW (11.6-14.8) % Plt Count (150-400) X10^3/uL Neut % (Auto) (50-75) % Lymph % (Auto) (25-40) % [place] % (Auto) (3-14) % Eos % (Auto) (2-4) % Baso % (Auto) (0-2) % Neut # (Auto) (6718-5844) /uL Lymph # (Auto) (1964-5002) /uL [place] # (Auto) (0-900) /uL Eos # (Auto) (0-450) /uL Baso # (Auto) (0-100) /uL PT (10.1-12.7) SECONDS INR (0.9-1.3) Sodium 138 (137-145) mmol/L Potassium 4.2 (3.4-5.1) mmol/L Chloride 104 (98-107) mmol/L Carbon Dioxide 27 (22-32) mmol/L BUN 14 (7-17) mg/dL Creatinine 0.76 (0.52-1.04) mg/dL Estimated GFR > 60 (>60) mL/min BUN/Creatinine Ratio 18.4 (6-22) Glucose 142 H (80-110) mg/dL Lactate 1.8 (0.7-2.1) mmol/L Calcium 9.8 (8.4-10.2) mg/dL Total Bilirubin 0.7 (0.2-1.3) mg/dL AST 30 (14-36) IU/L ALT 34 (<35) IU/L Alkaline Phosphatase 184 H (38-126) U/L Troponin I < 0.012 (0.01-0.034) ng/mL NT-Pro-B Natriuret Pep 91 (<125) pg/mL Total Protein 7.9 (6.3-8.2) g/dL Albumin 4.5 (3.5-5.0) g/dL Globulin 3.4 (1.7-4.1) g/dL Albumin/Globulin Ratio 1.3 (1.0-2.8) Chlamy pneumoniae PCR (Not Detect) Adenovirus (PCR) (Not Detect) B. pertussis DNA (PCR) (Not Detecte) B.parapertussis DNA PCR (Not Detecte) Coronavirus OC43 (PCR) (Not Detect) Coronavirus HKU1 (PCR) (Not Detect) Coronavirus 229E (PCR) (Not Detect) SARS-CoV-2 (PCR) (Not Detecte) Coronavirus NL63 (PCR) (Not Detect) Human Metapneumovir PCR (Not Detect) Influenza Type A (PCR) (Not Detect) Influenza Type B (PCR) (Not Detect) M. pneumoniae (PCR) (Not Detect) Parainfluenza 1 (PCR) (Not Detect) Parainfluenza 2 (PCR) (Not Detect) Parainfluenza 3 (PCR) (Not Detect) Parainfluenza 4 (PCR) (Not Detect) RSV (PCR) (Not Detect) Entero/Rhino (PCR) (Not Detect) Urine Dip Bedside Urine Glucose 1000 mg/dl Bedside Urine Bilirubin - Negative Bedside Urine Ketone - Negative Urine Specific [place] 1.010 Bedside Urine Occult Blood - Negative Bedside Urine pH 6.0 Bedside Urine Protein - Negative Bedside Urine Urobilinogen - Negative Bedside Urine Nitrite - Negative Bedside Urine Leukocytes - Negative Esterase Discharge Plan Departure Patient Disposition: Home Clinical Impression: Back pain Instructions: DI for Thoracic Back Pain Activity Restrictions/Additional Instructions: You were evaluated in the ED today for upper back pain. Your workup was largely unremarkable with normal labs, EKG, chest x-ray, respiratory panel. Your physical exam was also reassuring, your symptoms are most likely musculoskeletal in origin. You may continue to trial the lidocaine patches and take your usual Tylenol with codeine for pain control. Return to the ED if you experience chest pain or shortness of breath. Prescriptions: No Action loratadine [Claritin] 10 MG tablet 10 mg PO QDAY Qty: 0 LIDOCAINE 1 patch Topical SEE INSTRUCTIONS Qty: 30 2RF loperamide [Imodium A-D] 2 mg capsule 2 mg PO TID PRN (Reason: loose stool) Qty: 90 0RF Rx Instructions: max 2-3 times a day; limit as possible ipratropium-albuterol 0.5 mg-3 mg(2.5 mg base)/3 mL solution for nebulization 3 ml inhalation QID PRN (Reason: shortness of breath or wheezing) Qty: 1080 1RF levothyroxine 150 mcg tablet 150 mcg PO .COMPLEX Rx Instructions: 150 mcg orally *Mon, Wed, Fri I take 150 mcg + an additional 1/2 tab; pyridostigmine bromide [Mestinon] 60 mg tablet 60 mg PO Patient Comments: Pt reports 30mg TID on medical history form Rx Instructions: 60 mg orally take a 30 mg tab daily and an additional 30-60 mg tab as needed for MG symptoms; not to exceed 120 mg/day; spironolactone 25 mg tablet 25 mg PO DAILY rosuvastatin 5 mg tablet 5 mg PO DAILY metformin 850 mg tablet 850 mg PO BID Jardiance 10 mg tablet 10 mg PO DAILY metoprolol tartrate 50 mg tablet 50 mg PO BID Patient Comments: TAKE 1 TABLET BY MOUTH TWICE DAILY zolpidem [Ambien] 10 mg tablet See Rx Instructions PO BEDTIME PRN (Reason: Insomnia) Patient Comments: Take 1/2 - 1 tablet as needed for insomnia Rx Instructions: orally bedtime PRN; Take 1/2 - 1 tablet as needed for insomnia ipratropium bromide 42 mcg (0.06 %) spray,non-aerosol 2 spray intranasal QID Rx Instructions: administer into each nostril fluticasone propionate 50 mcg/actuation spray,suspension 2 spray intranasal BID Rx Instructions: administer into each nostril Zinc 15 with copper 1 tab PO DAILY cholecalciferol (vitamin D3) 125 mcg (5,000 unit) capsule 125 mcg PO DAILY quercetin 500 mg capsule 500 mg PO DAILY lorazepam 1 mg tablet 1 mg PO BID PRN (Reason: Anxiety) lysine 600 mg tablet 600 mg PO DAILY ibuprofen 200 mg capsule 400 mg PO Q8H PRN fish,bora,flax oils-[id number] 1 cap PO DAILY ondansetron 4 mg tablet,disintegrating 8 mg PO BID Patient Comments: DISSOLVE 2 TABLETS IN MOUTH TWICE DAILY acetaminophen-codeine 300-30 mg tablet 1 - 2 tab PO QID PRN (Reason: Pain) (DME) OneTouch Ultra Test Strip See Rx Instructions .ROUTE .MEDSUPPLY Qty: 10 Patient Comments: USE 1 STRIP TO CHECK GLUCOSE NEEDED Rx Instructions: As directed (DME) lancets [OneTouch Delica Plus Lancet] 33 gauge misc See Rx Instructions .ROUTE .MEDSUPPLY Qty: 100 Patient Comments: USE DIRECTED Rx Instructions: As directed aspirin 81 mg tablet,delayed release (DR/EC) 81 mg PO DAILY furosemide 20 mg tablet 20 mg PO DAILY PRN nicotine 7 mg/24 hr patch 24 hour 1 patch transdermal Q24H Qty: 28 1RF Referrals: Cayla Brock DO [Primary Care Provider] - Stand Alone Forms: Patient Portal/API <Nils Topete MD - Last Filed: 12/25/22 08:24> [facility]: I was immediately available in the department for consultation. ?This documentation has been reviewed and I agree with assessment and plan. Supervised by Nils Topete MD
[2022-12-18] MEDS: LIDOCAINE PATCH 1 EACH ADH..PATCH 4 EACH TOP (14:32)
[2022-12-18 14:49] LABS: Adenovirus Not Detected (Not Detect); B. parapertussis Not Detected (Not Detecte); Bordetella pertussis Not Detected (Not Detecte); Chlamydophila pneumoniae Not Detected (Not Detect); Coronavirus 229E Not Detected (Not Detect); Coronavirus HKU1 Not Detected (Not Detect); Coronavirus NL 63 Not Detected (Not Detect); Coronavirus OC43 Not Detected (Not Detect); Human Metapneumovirus Not Detected (Not Detect); Human Rhinovirus/Enterovirus Not Detected (Not Detect); Influenza A Not Detected (Not Detect); Influenza B Not Detected (Not Detect); Mycoplasma pneumoniae Not Detected (Not Detect); Parainfluenza Virus 1 Not Detected (Not Detect); Parainfluenza Virus 2 Not Detected (Not Detect); Parainfluenza Virus 3 Not Detected (Not Detect); Parainfluenza Virus 4 Not Detected (Not Detect); Respiratory Syncytial Virus Not Detected (Not Detect); SARS- CoV-2 Not Detected (Not Detecte)
== END 2022-12-18 16:47 | disposition home or self-care (01) ==
PROVIDERS: Emergency Medicine; Emergency Provider Student in an Organized Health Care Education/Training Program; PCP Family Medicine
DX: M54.6 Pain in thoracic spine (principal); R06.02 Shortness of breath; Z79.899 Other long term (current) drug therapy
CPT/HCPCS: 36415; 71045; 80053; 81003; 83605; 83880; 84484; 85025; 85610; 87633; 93005; 99284; 99285

== ENCOUNTER → 2023-01-01 07:37 | Outpatient (CLI) | payer OTHER, SELFPAY ==
--- NOTE | 2023-01-01 07:38 | DI.NM.S_ITS ---
PROCEDURE: NM SENTINEL NODE INJECT ONLY RADIOPHARMACEUTICAL: 0.5-1.0 mCi Millipore filtered Tc-99m sulfur colloid. INDICATIONS: right breast cancer COMPARISON: None. PROCEDURE: The area around the nipple was prepped and draped in a sterile fashion. Tc-99m sulfur colloid was injected intra-dermally around the outer edge of the areola in the right breast. No image was obtained. IMPRESSION: Administration of radiotracer into the right breast periareolar region for intra-operative sentinel lymph node localization. Dictated by: Dread Palma M.D. on 01/01/2023 at 11:02 Transcribed by: STEPHANY on 01/01/2023 at 11:02 Approved by: Dread Palma M.D. on 01/01/2023 at 15:44
== END ==
PROVIDERS: PCP Family Medicine; Referring Provider Surgery; Visit Provider Surgery
DX: C50.911 Malignant neoplasm of unspecified site of right female breast (principal); Z17.0 Estrogen receptor positive status [ER+]
CPT/HCPCS: 38792; A9541

== ENCOUNTER 2023-01-01 07:38 | Day surgery (SDC) | payer OTHER, SELFPAY ==
--- NOTE | 2022-12-19 09:33 | PM.CALLCOV.1 ---
Call Coverage Note Note Date of Patient Contact: 12/19/22 Time of Patient Contact: 09:34 Narrative of Care Provided: Called to follow up and check in about her visit to ER yesterday. Scheduled Saturday (6 days from now) for surgery. No fevers, no nausea. Respiratory sx unchanged. Some upper airway gunk to cough, but that's normal for her. CXR done in ER. Labs are fine WBC 12.1 though. Is taking guifenesin and asked if ok to take before surgery. I said yes. Her main complaint was then and still is: back pain, thoracic back pain. Viraj's () stress level is so much better now that there is knowledge that there isn't something seriously wrong with me. My thoracic back hasn't ever really been evaluated. She has follow up with Dr. Brock arranged for this and figures she will get an MRI. She states, it's probably more of an ortho thing. She has had chronic knee and lumbar spine pain. Takes usually 1-2 of T3 per day. She isn't really supposed to take Motrin, but 400 of Motrin and one T3 does help with the thoracic back pain. Moving, coughing, taking a deep breath can cause severe pain. But she says, I know it's nothing serious. She talked to Anesthesiologist, Dr. Logan. Was advised to take a duoneb before surgery, etc. But she feels ready to go on Saturday. I did advise her that if anything didn't seem right of if her symptoms don't continue to improve, or anything new comes up, to please notify us. We can cancel for Saturday very easily and I promised to rebook promptly. Additionally I will arrange an outpatient bed in case she needs observation overnight for pain control or if shes not taking deep breaths.
[2022-12-20 10:53] VITALS: BMI 38.0
[2023-01-01] VITALS (10 sets, daily range): BP systolic 104–147; BP diastolic 51–75; PULSE 66–88; RESP 16–20; TEMP 36.2–36.7; O2SAT 88–97; BMI 38.0
--- NOTE | 2023-01-01 | DI.MG.S_ITS ---
SPECIMEN: 01/01/2023 CLINICAL: Right surgery specimen. Correlation is made to exams dated: 10/24/2022 mammogram and 10/09/2022 mammogram - [facility]. Right breast lumpectomy specimen contains the mass and coil biopsy clip. IMPRESSION: SPECIMEN Right breast lumpectomy specimen contains the mass and coil biopsy clip. Result conveyed to the operating room shortly after image acquisition. This exam was interpreted at Station ID: [id number]. Broderick Bansal M.D. slc/:01/01/2023 11:49:41
--- NOTE | 2023-01-01 | PATH_ITS ---
[facility] Accession Number: [id number] No. of containers..02 Tissue . 01 Material submitted: . PART A: breast - RIGHT BREAST MASS PART B: axilla - SENTINEL NODE RIGHT AXILLA . 01 Clinical history: . SHORT STITCH SUPERIOR, LONG STITCH LATERAL/DEEP; ANTERIOR=GREEN; INFERIOR=BLUE; LATERAL= . 01 Diagnosis: A. Right Breast Mass, Lumpectomy: Invasive ductal carcinoma with mucinous differentiation. . B. Buckner Node Dissection, Right Axilla: One of two lymph nodes positive for metastatic carcinoma (1/2). Extranodal extension present. . Please see Case Summary. . CASE SUMMARY . Specimen Procedure: Excision. Specimen laterality: Right. . Tumor . Histologic type: Invasive carcinoma of no special type (ductal) with mucinous differentiation (approximately 30%). . Histologic grade . Glandular/tubular score: 3/3 Nuclear pleomorphism score: 2/3 Mitotic rate score: 1/3 Overall grade: Grade 2 (score 6 of 9). . Tumor size: 26 mm. . Ductal carcinoma in situ: Present, solid and cribriform patterns, necrosis present, nuclear grade 2 of 3. . Tumor extent: Skin uninvolved. . Lymphatic and/or vascular invasion: Present. . Treatment effect: No known presurgical therapy. . Treatment effect in lymph nodes: Not applicable; biopsy changes present. . Margins . Margin status for invasive carcinoma: All margins negative for invasive carcinoma. Distance from invasive carcinoma to closest margin: 2 mm inferior margin. Anterior: 8 mm. Posterior: greater than 10 mm. Superior: greater than 10 mm. Medial: greater than 10 mm. Lateral: greater than 10 mm. . Margin status for DCIS: All margins negative for DCIS. Distance from DCIS to closest margin: 3 mm inferior margin. Anterior: 7 mm. Posterior: greater than 10 mm. Superior: greater than 10 mm. Medial: greater than 10 mm. Lateral: greater than 10 mm. . Regional lymph nodes Regional lymph node status: Tumor present in regional lymph nodes. Number of lymph nodes with macrometastasis: Exact number: 1. Number of lymph nodes with micrometastasis: Exact number: 0. Number of lymph nodes with isolated tumor cells: Exact number: 0. Size of largest ildefonso metastatic deposit: Exact size: 3 mm. Extranodal extension: Present, 3 mm. Total number of lymph nodes examined: Exact number: 2. . Distant metastasis Distant site involved: Not applicable. . pTNM classfication (AJCC 8th Edition): pT2 pN1a pM not applicable. . Additional findings: Small focus of atypical lobular hyperplasia, fibroadenomatous and fibrocystic change (adenosis, fibrosis, apocrine change, usual ductal hyperplasia), microcalcifications associated with hyalinized stroma adjacent to tumor and in regions of fibrocystic change, biopsy changes present in breast parenchyma and within lymph nodes. No clip identified. . Special studies . CAP BREAST BIOMARKER REPORTING TEMPLATE: . Estrogen and Progesterone Receptor studies performed on patient's previous biopsy (right breast 7 o'clock, [facility], [id number]; 10-24-22) and demonstrate the following by written report: . Estrogen Receptor (ER) Status: Positive Average intensity of staining: (3+, 100%) . Progesterone Receptor (PgR) Status: Low positive Average intensity of staining: (2+, 20%) . . HER2 (by immunohistochemistry): Negative (0+) Percentage of cells with uniform intense complete membrane stainin%. Primary antibody: 4B5 . Cold Ischemia and Fixation Times: Cold ischemic time cannot be calculated. Total fixation time is approximately 55 hours. . Her2 testing performed on Block Number: A7. . TECHNICAL NOTE: The scoring criteria for breast biomarkers by immunohistochemistry is based on the current ASCO/CAP guidelines (Sarah et al, Arch Pathol Lab Med 2010: 134(6): 907-922 / Vianey Silvestre, Arch Pathol Lab Med 2014: 138(2):241-256). Deparaffinized sections of formalin fixed tissue (along with appropriate positive controls) are incubated with the above antibody(s). Using the automated [place] stainer, tissue is incubated with the designated antibody* which is then localized by a non-biotin, dual polymer detection system. The external controls are reviewed for appropriate reactivity and found to be adequate. Results on the target cell population are indicated above. These tests have not been validated on decalcified tissue. * This test was developed and its performance characteristics determined by [employer]. It has not been cleared or approved by the U.S. Food and Drug Administration. The FDA has determined that such clearance or approval is not necessary. This test is used for clinical purposes. It should not be regarded as investigational or for research. [facility] 01/09/2023 1259 [facility] . 01 Electronically signed: . Digna Mayfield MD, Pathologist NPI- [id number] . 01 Gross description: . A. Received in formalin labeled with the patient's name, and right breast mass, short = superior, long = lateral/deep. Specimen: A right oriented lumpectomy. Weight: 117 grams. Measurement: 10.4 cm medial to lateral, 6.6 cm anterior to posterior, 3.9 cm superior to inferior. Skin Ellipse: Present, measuring 6.7 x 2.3 cm. Wire: Absent. Margins: Inked by the surgeon as follows: Anterior green, inferior blue, lateral orange, medial yellow, posterior black, superior red, and also oriented with sutures with short suture designating superior and is found within the red ink. The long suture is designated lateral/deep and is found at the junction of the orange and black inks. The inking is enforced at the bench. Sliced: From lateral to medial into fifteen 3 mm slices. Lesions Description: A single fairly well-defined white hard lesion. Size: 2.6 x 1.9 x 1.6 cm. Slices Involved: Slices 6-11. Biopsy Site: Possible biopsy site gel and changes are identified within slices 8-10 with no biopsy clip grossly identified. Distance to Margins: 0.6 cm from the blue margin, 0.7 cm from the green margin, 0.9 cm from the cutaneous surface, and greater than 1.0 cm from all remaining margins. Other: The remaining cut surfaces consist of yellow to white fibroadipose tissue with white fibrous tissue occupying approximately 20% of the cut surface with no additional lesions or biopsy sites identified. The specimen was removed on 01/01/2023 at 1110. Time in formalin not provided. Cold ischemic time cannot be calculated. Total fixation time is approximately 57 hours. Consumer Affairs Director sections are submitted as follows: A1: Rep slice 1, orange margin perpendicular. A2: Rep slice 3 to include orange margin and no lesion. A3: Rep slice 5 to include orange and green margins, no lesion. A4: Rep slice 6 to include lesion and green margin. A5: Rep slice 8 to include skin, blue margin, and lesion. A6: Rep slice 9 to include nearest blue margin, skin, entire lesion, and biopsy site. A7-A8: Composite guest services representative slice 10 to include blue margin, skin, and nearest green margin. A9-A10: Rep slice 12, no lesion to include blue, red and green margins. A11: Rep slice 15, yellow margin perpendicular. . B. Received in formalin labeled with the patient's name, and sentinel node R axilla consists of two foley lymph node candidates with surrounding adipose. The first measures 2.0 x 2.0 x 0.9 cm. The second measures 2.0 x 1.5 x 0.9 cm. Both lymph node candidates are serially sectioned and sectioning the second lymph node candidate reveals biopsy gel and a coil biopsy clip. The specimen is submitted entirely as follows: B1-B2: First serially sectioned lymph node candidate. B3-B4: Second serially sectioned lymph node candidate with biopsy site. The specimen was removed on 01/01/2023 at 1315. Time in formalin not provided. Cold ischemic time cannot be calculated. Total fixation time is approximately 55 hours. ([id number]) /MRV 01/03/2023 1828 Local . 01 Microscopic: . An immunohistochemistry panel is performed to further evaluate the cells of interest. The control stains show appropriate reactivity. . RESULTS: Block A2 E-cadherin: Absent in regions of interest. Absence of e-cadherin favors minute foci of atypical lobular hyperplasia. . Block A7 E-cadherin: Positive through tumor, confirms ductal differentiation. . . By written report ([employer] [id number]; 10/24/22, right breast 7 o'clock needle core biopsies), this patient's previous core biopsies demonstrate strongly positive e-cadherin and beta-catenin immunostaining, supporting a ductal differentiation. . . * This test was developed and its performance characteristics determined by [employer]. It has not been cleared or approved by the U.S. Food and Drug Administration. The FDA has determined that such clearance or approval is not necessary. This test is used for clinical purposes. It should not be regarded as investigational or for research. . 01 Pathologist provided ICD-10: C50.911 . 01 CPT . 411384, 587104, [id number], 707819, [id number] Specimen Comment: A courtesy copy of this report has been sent to Pathology Performed at: 01 [facility] [address] [place] [address], [place], [place] [id number] MD Tomas Dsouza MD Phone: [phone]
[2023-01-01] MEDS: LACTATED RINGERS 1,000 ML 42 ML IV ×2 (08:22→13:09)
[2023-01-01] MEDS: ALBUTEROL/IPRATROPIUM 3 ML AMPUL INH (09:40)
--- NOTE | 2023-01-01 09:52 | PM.PREOP ---
Pre-operative Note Interval Note History & Physical reviewed/Exam performed by Physician: Yes Changes to H&P: No
[2023-01-01] MEDS: CEFAZOLIN 2 GM/100 ML PREMIX 100 ML IV (10:18)
[2023-01-01] MEDS: BUPIVACAINE 0.25% (PF) 30 ML, EPINEPHrine 0.15 MG INJ (10:30)
[2023-01-01] MEDS: METHYLENE BLUE 50 MG/10 ML VIAL 10 MG IV (10:44)
--- NOTE | 2023-01-01 10:45 | SUR.OPER ---
Supine on padded OR bed, head on pillow, RIGHT ARM DRAPED IN FIELD AND OUT ON ARMBOARD. LEFT ARM padded arm board at <90 degrees abduction, legs uncrossed, safety belt at thigh, tape over blanket over lower legs.
--- NOTE | 2023-01-01 14:31 | SUR.PHASEII ---
Patient reports pain but does not want pain medications offered.
[2023-01-01] MEDS: ALBUTEROL 2.5 MG/3 ML NEB (ADULT) INH (15:04)
--- NOTE | 2023-01-04 19:23 | P.OP_ITS ---
Operative Date/Time/Diagnoses Date of procedure: 01/01/23 Pre-op diagnosis: Right lower outer breast cancer Post-op diagnosis: same Procedure & Clinicians Procedure: Partial mastectomy right breast and sentinel lymph node biopsy Same procedure as scheduled: Yes Indications: Saima has a palpable breast mass on imaging its dimensions are 2.1 x 1.3 x 1.9cm. This was biopsied and found to be invasive ductal carcinoma. There were some enlarged lymph nodes which were biopsied and negative. She presents today for a partial mastectomy and sentinel lymph node biopsy. Surgeon: Karie Benz Click Yes if Unassisted: Yes Anesthesia Type: General Operative Notes Specimen(s): other (Right partial mastectomy and sentinel lymph nodes x2) Procedure in detail: Patient was taken to the operating room and placed supine on the operating room table. A time-out was performed. Preop antibiotics were given bilateral SCDs were in place. General endotracheal anesthesia was induced. The right breast was prepped and draped in the usual sterile fashion and the right arm and axilla were prepped and draped into the sterile field. Methylene blue was injected below the nipple. The area in the lower outer quadrant that contained the palpable mass was marked. There was some dimpling of the skin in the middle of the lesion. And therefore this skin was excised along with the lesion in order to create adequate margins. A flap was raised towards the nipple and towards the inframammary fold on other side of the elliptical incision. The biopsy was brought down to the chest wall inferiorly and the entire palpable lesion along with a margin of tissue was excised. There was firm tissue which tracked up towards the axilla and was excised with the specimen as much as possible. The specimen was marked with colors to indicate the margin location. The remaining cavity was irrigated and hemostatic. Next attention was turned to the axilla. The [place] counter was placed in the axilla and a signal was obtained there. A small curvilinear incision was made below the hairline. This incision was carried down through the subcutaneous tissues using electrocautery. Careful dissection using a hemostat created spaces in search of lymph nodes that had a radio signal. I also looked for blue lymph nodes as well. The 1st lymph node that I encountered was enlarged. It had a signal of 423. It was not blue. I did remove this specimen and sent it for pathology. I continued to search for another lymph node. As I worked my way further down towards the chest wall another enlarged lymph node became visible. This lymph node carried a signal of 1393. Again it was not blue. After I removed this lymph node and sent it for pathology I checked the signal of the background tissue. The background tissue had a signal of 34. The there was no further enlarged palpable lymph nodes in the axilla and no further radial signal. The wound was irrigated and with electrocautery made hemostatic. The subcutaneous tissues of both incisions were closed with interrupted 3-0 Vicryl sutures. The skin was closed with running 4-0 Monocryl. Each wound was dressed with Steri-Strips. The patient tolerated the procedure well and went in good condition to the postoperative care unit. Complications: none Post-operative Condition: stable Disposition: PACU Plan for aftercare: Patient did very well from a respiratory perspective intraoperatively and will be discharged home from the postoperative care unit.
== END 2023-01-01 16:00 | disposition home or self-care (01) ==
PROVIDERS: PCP Family Medicine; Referring Provider Surgery; Visit Provider Surgery
PROC: (CPT 19301; principal; 2023-01-01 09:45)
DX: C50.911 Malignant neoplasm of unspecified site of right female breast (principal); C77.3 Secondary and unspecified malignant neoplasm of axilla and upper limb lymph nodes; Z17.0 Estrogen receptor positive status [ER+]; E11.9 Type 2 diabetes mellitus without complications; J44.9 Chronic obstructive pulmonary disease, unspecified; G70.00 Myasthenia gravis without (acute) exacerbation; G47.33 Obstructive sleep apnea (adult) (pediatric); E66.9 Obesity, unspecified; Z68.38 Body mass index [BMI] 38.0-38.9, adult; Z79.84 Long term (current) use of oral hypoglycemic drugs
CPT/HCPCS: 19301; 38525; 38792; 76098; A9541; C9803; J0171; J0690; J1100; J1170; J2405; J2704; J3010; J7613; Q9968

== ENCOUNTER → 2023-02-14 08:24 | Outpatient (CLI) | payer OTHER, SELFPAY ==
--- NOTE | 2023-02-14 | DI.NM.S_ITS ---
PROCEDURE: NM BONE SCAN WHOLE BODY RADIOPHARMACEUTICAL: 20.6 mCi Tc-99m MDP IV. INDICATIONS: R BREAST CANCER TECHNIQUE: Delayed whole-body scintigrams were obtained approximately 3-4 hours after intravenous injection of radiotracer. Anterior and posterior views were acquired from vertex to feet. Additional left and right oblique views of the thoracic cage were obtained. COMPARISON: [facility], CT, CT CHEST ABD PEL W CON, 02/14/2023, 9:39. FINDINGS: There are multiple foci of abnormal uptake involving cervical, thoracic and lumbar spine, sacrum, multiple ribs bilaterally, sternum, bony pelvis, right femoral head and left femoral neck, compatible with osseous metastases. Activity in calvarium is slightly heterogeneous, suspicious for metastasis. There are foci of increased periarticular activity most pronounced in shoulders, wrists, knees, ankles and feet, compatible with degenerative/arthritic changes. IMPRESSION: Multiple foci of abnormal osseous uptake compatible with osseous metastatic disease. Dictated by: Phil Crystal M.D. on 02/14/2023 at 16:23 Approved by: Phil Crystal M.D. on 02/14/2023 at 16:30
--- NOTE | 2023-02-14 | DI.CT.S_ITS ---
PROCEDURE: CT CHEST ABD PEL W CON INDICATIONS: R BREAST CANCER TECHNIQUE: After the administration of oral and intravenous contrast, axial sections acquired from the supraclavicular neck to the pubic symphysis. Coronal and sagittal reformats were performed. For radiation dose reduction, the following was used: automated exposure control, adjustment of mA and/or kV according to patient size. COMPARISON: None. FINDINGS: Image quality: Excellent. CHEST: Lower Neck: No enlarged lymph nodes. Thyroid: Diminutive. Axillae: No enlarged lymph nodes. Chest Wall: Surgical changes of the right breast, without measurable mass. Lungs and Airways: Pulmonary nodules as follows: - Stable 6-7 mm solid nodularity, left upper lobe (series 5, image 131). - New 5 mm solid nodule, posterior left upper lobe (series 5, image 79). -new 3-4 mm solid nodule, right upper lobe (series 5, image 87). Pleura: No pneumothorax or pleural effusions. Heart: Heart size is normal. No pericardial effusion. Thoracic Vessels: The aorta and pulmonary arteries demonstrate normal size. Mediastinum and Christine: No enlarged lymph nodes. Esophagus: No wall thickening. No hiatal hernia. ABDOMEN: Liver: Of cirrhosis. Extensive right-sided hepatic cysts. No definite solid mass. Gallbladder: Surgically absent. Biliary ducts: Unremarkable. Pancreas: Coarse calcifications. Pancreatic divisum. Spleen: Mildly enlarged. Adrenal Glands: Unremarkable. Kidneys and Ureters: Unremarkable. Stomach and Bowel: Stomach, small bowel loops, and colon are unremarkable. Peritoneum: No abnormal intraperitoneal fluid. No free air. Ventral Wall: No hernia. Abdominal Nodes: No retroperitoneal or mesenteric adenopathy by size criteria. Vessels: Aorta and inferior vena cava are normal in size. PELVIS: Pelvic Organs: Unremarkable. Bladder: Unremarkable. Pelvic Nodes: No enlarged lymph nodes. Miscellaneous: No inguinal hernias are seen. Bones: Faint, sclerotic lesions throughout the spine , pelvis, right femur and sternum. No measurable soft tissue component. Grade 1 anterolisthesis of L4 on L5 secondary to facet arthrosis. Pathologic fracture of the T7 vertebral body, without endplate retropulsion. IMPRESSION: 1. Surgical changes of the right breast, without measurable mass. No axillary adenopathy. 2. Diffuse sclerotic osseous metastasis. 3. A couple of new solid pulmonary nodules in the upper lobes compared with 07/19/2022. Metastatic disease not excluded. 4. Cirrhosis and chronic pancreatitis. 5. Extensive cystic lesions throughout the right hepatic lobe. No definite solid mass. Dictated by: Juventino Latham M.D. on 02/14/2023 at 10:24 Approved by: Juventino Latham M.D. on 02/14/2023 at 10:36
[2023-02-14 09:22] LABS: Estimated Glomerular Filt Rate > 60 mL/min (>60)
== END ==
PROVIDERS: Specialist; PCP Family Medicine; Referring Provider Radiology Radiation Oncology; Visit Provider Radiology Radiation Oncology
DX: C50.511 Malignant neoplasm of lower-outer quadrant of right female breast (principal); C79.51 Secondary malignant neoplasm of bone; R91.8 Other nonspecific abnormal finding of lung field; K74.60 Unspecified cirrhosis of liver; Z17.0 Estrogen receptor positive status [ER+]; K86.1 Other chronic pancreatitis; K76.89 Other specified diseases of liver
CPT/HCPCS: 36415; 71260; 74177; 78306; 82565; A9503; Q9967

== ENCOUNTER → 2023-02-27 13:29 | Outpatient (CLI) | payer OTHER, SELFPAY ==
--- NOTE | 2023-02-27 | DI.MRI.S_ITS ---
PROCEDURE: MR HEAD/BRAIN WO/W CON INDICATIONS: Anesthesia of skin TECHNIQUE: Noncontrast sagittal T1 spin echo, axial T2 fast spin echo, axial FLAIR, axial gradient echo, axial diffusion and ADC through the brain. Axial/sagittal/coronal 3-D CISS, thin-slice axial T1 spin echo with fat saturation through the skull base. After the administration of contrast, axial and coronal thin-slice T1 spin echo with fat saturation through the skull base, axial and coronal and sagittal T1 spin echo with fat saturation through the brain. COMPARISON: None. FINDINGS: Image quality: Excellent. Trigeminal nerves: In this patient with this given history, scrutiny is given to the trigeminal nerves. The trigeminal nerves demonstrate a normal appearance, without masses or abnormal enhancement seen along their courses, including within the Meckel's caves. CSF spaces: Ventricles are normal in size and shape. No extra-axial fluid collections. Basal cisterns are patent. Brain: No intracranial bleeds or mass effects. No abnormal intracranial enhancement. Diffusion weighted images show no acute ischemic insults. Rivers-white matter interface is intact. Brainstem is normal. Normal intravascular flow voids are present. Note is made of age-appropriate brain parenchymal volume loss and chronic small vessel ischemic changes. Skull and face: Calvarial marrow signal is normal. Orbits appear normal. Sinuses: Sinuses and mastoids appear clear. IMPRESSION: MRI within normal limits, without a cause of the patient's presenting history identified. No masses or abnormal enhancement can be seen. No findings of acute or subacute infarction can be seen. Dictated by: Robin Fall M.D. on 02/27/2023 at 15:40 Approved by: Robin Fall M.D. on 02/27/2023 at 15:41
== END ==
PROVIDERS: PCP Family Medicine; Referring Provider Radiology Radiation Oncology; Visit Provider Radiology Radiation Oncology
DX: R20.0 Anesthesia of skin (principal); C50.919 Malignant neoplasm of unspecified site of unspecified female breast; C76.51 Malignant neoplasm of right lower limb
CPT/HCPCS: 70553

== ENCOUNTER → 2023-08-14 08:41 | Outpatient (CLI) | payer OTHER, SELFPAY ==
--- NOTE | 2023-08-14 08:44 | DI.CT.S_ITS ---
PROCEDURE: CT CHEST ABD PEL W CON INDICATIONS: BREAST CANCER TECHNIQUE: After the administration of oral and intravenous contrast, axial sections acquired from the supraclavicular neck to the pubic symphysis. Coronal and sagittal reformats were performed. For radiation dose reduction, the following was used: automated exposure control, adjustment of mA and/or kV according to patient size. COMPARISON: [facility], CT, CT CHEST ABD PEL W CON, 02/14/2023, 9:39. FINDINGS: Image quality: Excellent. CHEST: Lower Neck: No enlarged lymph nodes. Thyroid: Within normal limits. Axillae: No enlarged lymph nodes. Chest Wall: Unremarkable. Lungs and Airways: Moderate centrilobular emphysema. Pulmonary nodules are as follows(all described on series 5): 1. Stable 6.6 mm subpleural left upper lobe pulmonary nodule, image 157. 2. A previously described 5 mm nodule in the left upper lobe on image 79 of the previous study is decreased in size, measuring approximately 3 mm on image 125. This lesion was initially seen on the most recent previous study. 3. A previously new 3 mm pulmonary nodule on prior image 87/5 in the right upper lobe is no longer identified. No new or increasing pulmonary nodules. Pleura: No pneumothorax or pleural effusions. Heart: Heart size is normal. No pericardial effusion. Thoracic Vessels: The aorta and pulmonary arteries demonstrate normal size. Mediastinum and Christine: Small, shotty bilateral hilar and mediastinal lymph nodes, unchanged, most likely reactive in nature. Esophagus: No wall thickening. No hiatal hernia. ABDOMEN: Liver: Unchanged appearance. Cirrhosis. No identified solid mass. Extensive cystic change in the right lobe of the liver with innumerable cysts present.. Gallbladder: Surgically absent Biliary ducts: Unremarkable. Pancreas: Numerous punctate calcifications are consistent with chronic pancreatitis. Pancreatic divisum. No pancreatic mass. Spleen: Splenomegaly, as before in. Adrenal Glands: Unremarkable. Kidneys and Ureters: Unremarkable. Stomach and Bowel: Colonic diverticulosis without evidence of diverticulitis. Peritoneum: No abnormal intraperitoneal fluid. No free air. Ventral Wall: No hernia. Abdominal Nodes: No retroperitoneal or mesenteric adenopathy by size criteria. Vessels: Borderline aneurysmal dilatation of the infrarenal abdominal aorta measuring up to 3.0 cm. PELVIS: Pelvic Organs: Unremarkable. Bladder: Unremarkable. Pelvic Nodes: No enlarged lymph nodes. Miscellaneous: No inguinal hernias are seen. Bones: Extensive blastic bony metastatic disease. Greater con spicule knee of sclerotic lesions either represents interval progression of sclerotic metastatic lesions or response to therapy. Compressions of L2 and T7 and T8 are unchanged. No new or increasing compression fractures. There is canal stenosis secondary to benign degenerative change at L3-L4. IMPRESSION: 1. Moderate centrilobular emphysema. 2. A longstanding pulmonary nodule is stable. The other 2 pulmonary nodules which were previously described, and 1st appeared on the most recent previous study, as both either decrease in size or disappeared, suggesting response to therapy. No new or increasing pulmonary nodules. 3. Cirrhosis, extensive right lobe liver cystic change. No liver masses identified. 4. Splenomegaly. 5. There has either been progression of bony metastatic sclerotic disease or increased is ability of sclerotic metastatic disease secondary to response to therapy. 6. Old compression fractures. No new or increasing compression fractures. Dictated by: Akira Eller M.D. on 08/14/2023 at 17:38 Approved by: Akira Eller M.D. on 08/14/2023 at 17:55
--- NOTE | 2023-08-14 08:45 | DI.NM.S_ITS ---
PROCEDURE: [place] BONE SCAN WHOLE BODY RADIOPHARMACEUTICAL: 19.9 mCi Tc-99m MDP IV. INDICATIONS: BREAST CANCER TECHNIQUE: Delayed whole-body scintigrams were obtained approximately 3-4 hours after intravenous injection of radiotracer. Anterior and posterior views were acquired from vertex to feet. COMPARISON: [place], [place], [place] BONE SCAN WHOLE BODY, 02/14/2023, 11:52. FINDINGS: Redemonstration of multiple foci abnormal uptake involving the entire spine, sacrum, ribs, iliac bones, calvarium, right femoral head, left femoral neck. Some of these lesions demonstrate decreased uptake compared to prior, for example the rib lesions. Calvarial lesions are more well-defined than prior. Increased foci of paratracheal uptake throughout the shoulders, wrists, knees, ankles and feet, most consistent with osteoarthritic changes. IMPRESSION: Redemonstration of multiple foci of abnormal osseous uptake, consistent with osseous metastatic disease. Some lesions demonstrate decreased activity compared to prior which may represent improvement in disease. No definite new lesions are seen. Dictated by: Manpreet Cruz M.D. on 08/14/2023 at 14:26 Approved by: Manpreet Cruz M.D. on 08/14/2023 at 14:45
== END ==
PROVIDERS: PCP Family Medicine; Referring Provider Nurse Practitioner; Visit Provider Nurse Practitioner
DX: C50.911 Malignant neoplasm of unspecified site of right female breast (principal); C79.51 Secondary malignant neoplasm of bone; R91.8 Other nonspecific abnormal finding of lung field
CPT/HCPCS: 71260; 74177; 78306; A9503; Q9967

== ENCOUNTER → 2023-11-26 09:42 | Outpatient (CLI) | payer OTHER, SELFPAY ==
[2023-11-26 11:33] LABS: HEMOLYSIS < 15 (0-50)
[2023-11-26 11:38] LABS: Alanine Aminotransferase 32 IU/L (<35); Albumin 3.9 g/dL (3.5-5.0); Albumin Globulin Ratio 1.2 (1.0-2.8); Alkaline Phosphatase 134 U/L (38-126); Aspartate Aminotransferase 48 IU/L (14-36); BUN Creatinine Ratio 12.9 (6-22); Blood Urea Nitrogen 12 mg/dL (7-17); Carbon Dioxide 27 mmol/L (22-32); Chloride 105 mmol/L (98-107); Cholesterol 112 mg/dL (140-199); Estimated Glomerular Filt Rate > 60 mL/min (>60); Globulin 3.2 g/dL (1.7-4.1); Glucose 85 mg/dL (80-110); HDL Cholesterol 38 mg/dL (40-60); LDL Cholesterol Calculated 34 mg/dL (<100); Potassium 3.4 mmol/L (3.4-5.1); Sodium 139 mmol/L (137-145); Total Protein 7.1 g/dL (6.3-8.2); Triglycerides 200 mg/dL (35-150)
[2023-11-26 12:06] LABS: TSH w/ Reflex to FT4 0.87 uIU/mL (0.47-4.68)
[2023-11-27 05:13] LABS: x Labcorp Estim. Avg Glu (eAG) 97 mg/dL (.)
== END ==
PROVIDERS: PCP Family Medicine; Referring Provider Family Medicine; Visit Provider Family Medicine
DX: E05.00 Thyrotoxicosis with diffuse goiter without thyrotoxic crisis or storm; C79.51 Secondary malignant neoplasm of bone; E78.5 Hyperlipidemia, unspecified; E11.9 Type 2 diabetes mellitus without complications; E03.9 Hypothyroidism, unspecified
CPT/HCPCS: 36415; 80053; 80061; 83036; 84443

== ENCOUNTER → 2023-12-10 10:40 | Outpatient (CLI) | payer OTHER, SELFPAY ==
[2023-12-10 11:54] LABS: INR 1.1 (0.9-1.3); Prothrombin Time 12.4 SECONDS (9.4-12.5)
[2023-12-10 11:58] LABS: Alanine Aminotransferase 26 IU/L (<35); Albumin 3.7 g/dL (3.5-5.0); Albumin Globulin Ratio 1.2 (1.0-2.8); Alkaline Phosphatase 105 U/L (38-126); Aspartate Aminotransferase 34 IU/L (14-36); BUN Creatinine Ratio 12.7 (6-22); Bilirubin Total 0.6 mg/dL (0.2-1.3); Blood Urea Nitrogen 10 mg/dL (7-17); Calcium 9.2 mg/dL (8.4-10.2); Carbon Dioxide 29 mmol/L (22-32); Chloride 108 mmol/L (98-107); Estimated Glomerular Filt Rate > 60 mL/min (>60); Globulin 3.1 g/dL (1.7-4.1); Glucose 94 mg/dL (80-110); HEMOLYSIS < 15 (0-50); Iron 121 ug/dL (37-170); Potassium 3.3 mmol/L (3.4-5.1); Sodium 140 mmol/L (137-145); Total Protein 6.8 g/dL (6.3-8.2)
[2023-12-10 12:00] LABS: Add Manual Diff / Slide Review NO; Basophils Absolute Auto 100 /uL (0-100); Basophils Percent Auto 2.4 % (0-2); Eosinophils Absolute Auto 0 /uL (0-450); Hematocrit 28.9 % (36-46); Lymphocytes Absolute Auto 1000 /uL (1100-4500); Lymphocytes Percent Auto 42.5 % (25-40); Mean Corpuscular HGB Conc 34.5 % (30-36); Mean Corpuscular Hemoglobin 35.9 PG (26-34); Mean Corpuscular Volume 104.2 fL (80-100); Monocytes Absolute Auto 200 /uL (0-900); Monocytes Percent Auto 9.2 % (3-14); Neutrophils Absolute Auto 1100 /uL (1500-7000); Neutrophils Percent Auto 45.9 % (50-75); Platelet Count 60 X10^3/uL (150-400); Red Blood Cell Count 2.77 X10^6/uL (4.0-5.2); White Blood Cell Count 2.3 X10^3/uL (4.5-11.0)
[2023-12-10 12:09] LABS: Percent Iron Saturation 29 % (15-50); Total Iron Binding Capacity 421 ug/dL (265-497); Transferrin 353 mg/dL (206-381)
[2023-12-10 12:29] LABS: Hepatitis B Surface Antigen NEGATIVE s/c (NEGATIVE)
[2023-12-10 12:47] LABS: Hep C Virus Ab w/Reflex Quant NEGATIVE s/c (NEGATIVE)
[2023-12-10 14:22] LABS: Microalbumi Creatinin Ratio Ur 17.5 ug/mg CR (<30)
[2023-12-11 06:52] LABS: Alpha Fetoprotein 2.1 ng/mL (0.0-9.2); Hepatitis B Core Antibody Negative (Negative)
[2023-12-11 08:12] LABS: Alpha 1 Anti Trypsin 226 mg/dL (101-187); Ceruloplasmin 28.4 mg/dL (19.0-39.0); Immunoglobulin M, Quantitative 213 mg/dL (26-217)
[2023-12-11 21:51] LABS: t-Transglutaminase IgA <2 U/mL (0-3)
[2023-12-12 17:09] LABS: Anti Mitochondrial ABY IGG <20.0 Units (0.0-20.0); Smooth Muscle Antibody 6 Units (0-19)
[2023-12-12 18:39] LABS: IgG Subclass 1 415 mg/dL (248-810); IgG Subclass 2 234 mg/dL (130-555); IgG Subclass 3 94 mg/dL (15-102); IgG Subclass 4 24 mg/dL (2-96); IgG Total 773 mg/dL (586-1602)
[2023-12-15 16:59] LABS: ANA Screen, IFA Negative (.)
[2023-12-24 12:44] LABS: Immunoglobulin G, Quantitative 773
== END ==
PROVIDERS: PCP Family Medicine; Referring Provider Internal Medicine Gastroenterology; Visit Provider Internal Medicine Gastroenterology
DX: K74.60 Unspecified cirrhosis of liver (principal); R13.10 Dysphagia, unspecified; I10 Essential (primary) hypertension
CPT/HCPCS: 36415; 80053; 82043; 82103; 82105; 82390; 82570; 82784; 82787; 83516; 83540; 83550; 85025; 85610; 86038; 86376; 86704; 86803; 87340

== ENCOUNTER → 2024-01-02 12:23 | Outpatient (CLI) | payer MEDICARE, SELFPAY ==
--- NOTE | 2024-01-02 12:59 | DI.ECHO.S_ITS ---
[facility] +---------+ : : [address] : : : : [id number] : : : : Phone: [phone] Echocardiogram Report + + :Name: BOSTON JORDAN Study Date: 01/02/2024 Height: 60 in : :[facility] ReadingLocation: Weight: 155 lb : : Gender: Female BSA: 1.7 m2 : :: 1950 Age: 73 yrs BP: 114/60 mmHg: :Reason For Study: LOCALIZED EDEMA : :Ordering Physician: NATHEN, : :PEYMAN Performed By: Marissa Redmond : :Referring: PEYMAN FERRELL : + + Interpretation Summary 1) Normal left ventricular thickness, size, wall motion, and systolic function (EF 60-65%). 2) Normal right ventricular size and function. 3) No significant valvular abnormalities. 4) Compared to the Echo ariza 10/31/2022, no significant change. Procedure: A two-dimensional transthoracic echocardiogram with color flow and Doppler was performed. The study quality was technically adequate. Comparison is made with the echocardiogram of 10/31/2022. The patient was in sinus rhythm with heart rates between 63-84 bpm during the exam. Left Ventricle: The left ventricle is normal in size and wall thickness. The ejection fraction is estimated to be 60-65%. Left ventricular systolic function appears normal without focal wall motion abnormalities. Right Ventricle: The right ventricle is normal in size and function. Atria: The left atrial size is normal. Right atrial size is normal. There is no Doppler evidence for an interatrial shunt. Mitral Valve: The mitral valve is normal in structure and function. There is trace mitral regurgitation. Aortic Valve: The aortic valve is trileaflet. The aortic valve opens well. There is no aortic valve stenosis. No aortic regurgitation is present. Tricuspid Valve: The tricuspid valve is normal in structure and function. There is trace tricuspid regurgitation. Pulmonary artery pressures cannot be estimated because of the lack of a measurable TR jet velocity. Pulmonic Valve: The pulmonic valve leaflets are thin and pliable; valve motion is normal. There is trace pulmonic regurgitation. Great Vessels: The aortic root is normal size. The dimensions of the ascending aorta are normal. The IVC is of normal diameter and collapses greater than 50% with a sniff. This suggests a low right atrial pressure of 3 mm Hg. Pericardium/ Pleura There is no pericardial effusion. There is no pleural effusion. MMode/2D Measurements & Calculations LVIDd: 3.5 cm LVOT diam: 2.0 cm LVIDs: 2.4 cm Ao root diam: 2.8 cm FS: 31.8 % asc Aorta Diam: 3.3 cm IVSd: 0.93 cm LVPWd: 1.0 cm LV garcia. diameter/BSA (cm/m^2): 2.1 LV sys. diameter/BSA (cm/m^2): 1.4 LA A2 area: 16.9 cm2 RA long axis: 4.9 cm LA A4 area: 14.9 cm2 RA area: 14.3 cm2 LA length (vol): 5.0 cm RA vol: 36.0 ml LA vol: 43.1 ml RA : 21.5 ml/m2 LA vol index: 25.7 ml/m2 IVC diam: 1.4 cm RVD1 (basal): 4.0 cm TAPSE: 2.3 cm Doppler Measurements & Calculations Ao V2 max: 168.2 cm/sec LVOT Max Alonzo: 135.1 cm/sec Ao V2 mean: 127.3 cm/sec LV V1 max P.3 mmHg Ao max P.3 mmHg LV V1 VTI: 31.9 cm Ao mean P.9 mmHg SHANTA(I,D): 2.6 cm2 Ao V2 VTI: 39.2 cm SHANTA(V,D): 2.5 cm2 sev ratio: 0.81 SHANTA indexed to BSA (cm^2/m^2): 1.5 MV E max alonzo: 73.2 cm/sec PA V2 max: 98.7 cm/sec MV A max alonzo: 98.2 cm/sec PA V2 mean: 69.2 cm/sec MV E/A: 0.74 PA mean P.1 mmHg Med Peak E' Alonzo: 6.5 cm/sec PA pr(Accel): 46.5 mmHg E/E' med: 11.3 Lat Peak E' Alonzo: 6.6 cm/sec E/E' lat: 11.1 E/e' average: 11.2 MV dec time: 0.31 sec SV(LVOT): 101.1 ml Reading Physician:05:50 PM
== END ==
PROVIDERS: PCP Family Medicine; Referring Provider Internal Medicine Cardiovascular Disease; Visit Provider Internal Medicine Cardiovascular Disease
DX: I25.10 Atherosclerotic heart disease of native coronary artery without angina pectoris (principal); R60.0 Localized edema; R06.02 Shortness of breath
CPT/HCPCS: 93306

== ENCOUNTER → 2024-05-29 10:36 | Outpatient (CLI) | payer MEDICARE, SELFPAY ==
[2024-05-29 12:28] LABS: Alanine Aminotransferase 19 IU/L (<35); Albumin 3.3 g/dL (3.5-5.0); Albumin Globulin Ratio 1.4 (1.0-2.8); Alkaline Phosphatase 146 U/L (38-126); Aspartate Aminotransferase 28 IU/L (14-36); BUN Creatinine Ratio 12.7 (6-22); Bilirubin Total 0.8 mg/dL (0.2-1.3); Blood Urea Nitrogen 25 mg/dL (7-17); Calcium 9.9 mg/dL (8.4-10.2); Carbon Dioxide 28 mmol/L (22-32); Chloride 102 mmol/L (98-107); Estimated Glomerular Filt Rate 27 mL/min (>60); Globulin 2.4 g/dL (1.7-4.1); Glucose 92 mg/dL (80-110); HEMOLYSIS < 15 (0-50); Sodium 135 mmol/L (137-145); Total Protein 5.7 g/dL (6.3-8.2)
[2024-05-29 12:46] LABS: Add Manual Diff / Slide Review YES; Hematocrit 26.4 % (36-46); Mean Corpuscular HGB Conc 33.8 % (30-36); Mean Corpuscular Hemoglobin 38.6 PG (26-34); Platelet Count 63 X10^3/uL (150-400); Red Blood Cell Count 2.32 X10^6/uL (4.0-5.2); Red Cell Distribution Width 15.4 % (11.6-14.8); White Blood Cell Count 2.1 X10^3/uL (4.5-11.0)
[2024-05-29 13:11] LABS: Neutrophils Absolute Manual 924 /uL (3000-5900); Total Cells Counted 100
[2024-05-29 13:12] LABS: Macrocytosis 1+; Rouleaux 1+
[2024-05-29 13:13] LABS: Anisocytosis 1+; Spherocytes 1+
== END ==
PROVIDERS: PCP Family Medicine; Referring Provider Family Medicine; Visit Provider Family Medicine
DX: N17.9 Acute kidney failure, unspecified (principal); W18.39XA Other fall on same level, initial encounter
CPT/HCPCS: 36415; 80053; 85007; 85025

== ENCOUNTER → 2024-06-16 10:22 | Outpatient (CLI) | payer MEDICARE, SELFPAY | PROVIDERS: PCP Family Medicine; Referring Provider Family Medicine; Visit Provider Surgery | DX: L89.313 Pressure ulcer of right buttock, stage 3 (principal); E11.628 Type 2 diabetes mellitus with other skin complications; I50.9 Heart failure, unspecified; Z99.81 Dependence on supplemental oxygen | CPT/HCPCS: 11042; 99203; 99213 ==

== ENCOUNTER → 2024-06-23 14:16 | Outpatient (CLI) | payer MEDICARE, SELFPAY | LOC: WC 14:18 | PROVIDERS: PCP Family Medicine; Referring Provider Family Medicine; Visit Provider Surgery | DX: L89.313 Pressure ulcer of right buttock, stage 3 (principal); E11.628 Type 2 diabetes mellitus with other skin complications; Z99.81 Dependence on supplemental oxygen | CPT/HCPCS: 11042 ==

== ENCOUNTER → 2024-06-30 13:49 | Outpatient (CLI) | payer MEDICARE, SELFPAY ==
[2024-06-30 15:02] LABS: Add Manual Diff / Slide Review NO; Basophils Absolute Auto 100 /uL (0-100); Basophils Percent Auto 2.9 % (0-2); Eosinophils Absolute Auto 0 /uL (0-450); Eosinophils Percent Auto 0.1 % (2-4); Hematocrit 24.2 % (36-46); Hemoglobin 8.2 g/dL (12.0-16.0); Lymphocytes Absolute Auto 800 /uL (1100-4500); Lymphocytes Percent Auto 32.2 % (25-40); Mean Corpuscular HGB Conc 33.9 % (30-36); Mean Corpuscular Hemoglobin 40.2 PG (26-34); Mean Corpuscular Volume 118.6 fL (80-100); Monocytes Absolute Auto 400 /uL (0-900); Monocytes Percent Auto 15.5 % (3-14); Neutrophils Absolute Auto 1200 /uL (1500-7000); Neutrophils Percent Auto 49.3 % (50-75); Platelet Count 80 X10^3/uL (150-400); Red Blood Cell Count 2.04 X10^6/uL (4.0-5.2); Red Cell Distribution Width 17.3 % (11.6-14.8); White Blood Cell Count 2.5 X10^3/uL (4.5-11.0)
[2024-06-30 15:13] LABS: Alanine Aminotransferase 27 IU/L (<35); Albumin Globulin Ratio 1.1 (1.0-2.8); Alkaline Phosphatase 137 U/L (38-126); Aspartate Aminotransferase 30 IU/L (14-36); BUN Creatinine Ratio 19.7 (6-22); Bilirubin Total 0.7 mg/dL (0.2-1.3); Blood Urea Nitrogen 30 mg/dL (7-17); Calcium 9.1 mg/dL (8.4-10.2); Carbon Dioxide 28 mmol/L (22-32); Chloride 103 mmol/L (98-107); Estimated Glomerular Filt Rate 36 mL/min (>60); Globulin 2.8 g/dL (1.7-4.1); Glucose 78 mg/dL (80-110); HEMOLYSIS < 15 (0-50); Potassium 5.1 mmol/L (3.4-5.1); Sodium 133 mmol/L (137-145); Total Protein 5.8 g/dL (6.3-8.2)
[2024-06-30 15:23] LABS: Anisocytosis 2+
[2024-06-30 15:24] LABS: Macrocytosis 1+
== END ==
PROVIDERS: PCP Family Medicine; Referring Provider Internal Medicine Hematology & Oncology; Visit Provider Internal Medicine Hematology & Oncology
DX: C50.911 Malignant neoplasm of unspecified site of right female breast (principal); C79.51 Secondary malignant neoplasm of bone
CPT/HCPCS: 36415; 80053; 85025

== ENCOUNTER → 2024-06-30 14:44 | Outpatient (CLI) | payer MEDICARE, SELFPAY | PROVIDERS: PCP Family Medicine; Referring Provider Family Medicine; Visit Provider Surgery | DX: L89.313 Pressure ulcer of right buttock, stage 3 (principal); E11.622 Type 2 diabetes mellitus with other skin ulcer | CPT/HCPCS: 11042 ==

== ENCOUNTER → 2024-07-07 13:14 | Outpatient (CLI) | payer MEDICARE, SELFPAY | LOC: WC 13:15 | PROVIDERS: PCP Family Medicine; Referring Provider Family Medicine; Visit Provider Surgery | DX: L97.313 Non-pressure chronic ulcer of right ankle with necrosis of muscle (principal); E11.628 Type 2 diabetes mellitus with other skin complications | CPT/HCPCS: 11042 ==

== ENCOUNTER → 2024-07-16 13:49 | Outpatient (CLI) | payer MEDICARE, SELFPAY ==
[2024-07-16 14:34] LABS: Add Manual Diff / Slide Review NO; Basophils Absolute Auto 100 /uL (0-100); Basophils Percent Auto 2.5 % (0-2); Eosinophils Absolute Auto 0 /uL (0-450); Hematocrit 23.4 % (36-46); Lymphocytes Absolute Auto 800 /uL (1100-4500); Lymphocytes Percent Auto 36.6 % (25-40); Mean Corpuscular HGB Conc 34.3 % (30-36); Mean Corpuscular Hemoglobin 41.8 PG (26-34); Mean Corpuscular Volume 121.7 fL (80-100); Monocytes Absolute Auto 200 /uL (0-900); Monocytes Percent Auto 10.6 % (3-14); Neutrophils Absolute Auto 1100 /uL (1500-7000); Neutrophils Percent Auto 50.3 % (50-75); Platelet Count 76 X10^3/uL (150-400); Red Blood Cell Count 1.93 X10^6/uL (4.0-5.2); Red Cell Distribution Width 17.8 % (11.6-14.8); White Blood Cell Count 2.2 X10^3/uL (4.5-11.0)
[2024-07-16 14:58] LABS: BUN Creatinine Ratio 19.5 (6-22); Blood Urea Nitrogen 32 mg/dL (7-17); Calcium 9.7 mg/dL (8.4-10.2); Carbon Dioxide 28 mmol/L (22-32); Chloride 100 mmol/L (98-107); Estimated Glomerular Filt Rate 33 mL/min (>60); Glucose 95 mg/dL (80-110); HEMOLYSIS < 15 (0-50); Potassium 5.2 mmol/L (3.4-5.1); Sodium 132 mmol/L (137-145)
[2024-07-16 16:12] LABS: Anisocytosis 1+; Macrocytosis 2+
== END ==
LOC: LAB 13:51
PROVIDERS: PCP Family Medicine; Referring Provider Internal Medicine Cardiovascular Disease; Visit Provider Internal Medicine Cardiovascular Disease
DX: R60.0 Localized edema (principal); I25.10 Atherosclerotic heart disease of native coronary artery without angina pectoris; R06.02 Shortness of breath; I50.32 Chronic diastolic (congestive) heart failure
CPT/HCPCS: 36415; 80048; 85025

== ENCOUNTER → 2024-07-17 15:23 | Outpatient (CLI) | payer MEDICARE, SELFPAY ==
--- NOTE | 2024-07-17 15:55 | EKG_ITS ---
[place] [id number] [place] [id number] Test Date: 2024-07-17 Pat Name: Saima Almonte Department: [facility] Room: Gender: Female Contract Analyst: JERRICA : 1950 Requested By: Order Number: [id number] Reading MD: Jeronimo Ham MD Measurements Intervals [place] Rate: 78 P: 52 [place]: 172 QRS: 3 QRSD: 130 T: 42 QT: 422 QTc: 481 Interpretive Statements Normal sinus rhythm Nonspecific intraventricular block Cannot rule out Anterior infarct , age undetermined NO SIGNIFICANT CHANGE FROM PRIOR TRACING Electronically Signed On 07-17-2024 16:29:57 PDT by Jeronimo Ham MD
[2024-07-17 17:07] LABS: NT-proBNP (BNP-Adult 18+) 1180 pg/mL (<125)
== END ==
PROVIDERS: PCP Family Medicine; Referring Provider Family Medicine; Visit Provider Family Medicine
DX: R07.9 Chest pain, unspecified (principal); I50.9 Heart failure, unspecified; E87.6 Hypokalemia
CPT/HCPCS: 36415; 83880; 93005; 93010

== ENCOUNTER → 2024-07-22 09:04 | Outpatient (CLI) | payer MEDICARE, SELFPAY ==
--- NOTE | 2024-07-22 | DI.CT.S_ITS ---
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 5 mm coronal and sagittal reformats were performed, with additional 7 mm MIP reformats through the lungs. For radiation dose reduction, the following was used: automated exposure control, adjustment of mA and/or kV according to patient size. COMPARISON: [facility], CT, CT CHEST ABD PEL W CON, 02/14/2023, 9:39. [facility], CT, CT CHEST ABD PEL W CON, 08/14/2023, 10:22. [facility], CT, CT CHEST ABDOMEN PELVIS WITH CONTRAST, 12/17/2023, 12:19. FINDINGS: Image quality: Excellent. CHEST: Lower Neck: No enlarged lymph nodes. Thyroid: No thyroid nodules which require sonographic follow up, per consensus guidelines. Axillae: No enlarged lymph nodes. Chest Wall: Unremarkable. Lungs and Pleura: No pneumothorax or pleural effusions. Confluent centrilobular emphysema. Stable pulmonary micro nodules. Stable 6 x 7 mm juxtapleural nodule in the lingula (series 5, image 135). Heart: Heart size is normal. No pericardial effusion. Three-vessel coronary calcifications. Thoracic Vessels: The aorta and pulmonary arteries demonstrate normal size. Mediastinum and Christine: Slightly decreased prominent mediastinal nodes. For example, the 8 mm short axis right upper paratracheal node previously measured 11 mm (series 2, image 27). Esophagus: Diffuse thickening of the esophagus. ABDOMEN: Liver: Cirrhosis. Single phase contrast evaluation is suboptimal for detection of hepatocellular carcinoma. No large , solid mass identified. Patent portal vein. Multiple hepatic cysts with thin internal septations present within the right hepatic lobe. Gallbladder: Absent. Biliary ducts: No intrahepatic or extrahepatic biliary dilation, accounting for a post cholecystectomy state. Pancreas: No ductal dilation. Coarse calcifications . Spleen: Enlarged. Adrenal Glands: No adrenal nodules. Kidneys and Ureters: No hydronephrosis. No solid mass. No complex renal cystic lesion which requires follow up. Stomach and Bowel: Normal colonic caliber, without significant wall thickening. Peritoneum: No abnormal intraperitoneal fluid. No free air. Ventral Wall: No significant ventral hernia. Abdominal Nodes: No retroperitoneal or mesenteric adenopathy by size criteria. Vessels: Ectatic infrarenal aorta, stable from prior ; attention on follow-up. PELVIS: Pelvic Organs: Unremarkable. Bladder: No bladder wall thickening, accounting for underdistention. Pelvic Nodes: No enlarged lymph nodes. Miscellaneous: No inguinal hernias are seen. Bones: Diffuse sclerotic osseous metastatic disease. No measurable soft tissue component. Stable T7 pathologic fracture. Stable anterior wedging of the L3 vertebral body. Lumbarization of S1. Grade 1 anterolisthesis of L5 on S1 secondary to facet arthrosis. IMPRESSION: Stable diffuse osseous metastatic disease. No additional measurable disease. Cirrhosis. Single phase contrast evaluation is suboptimal for detection of hepatocellular carcinoma. No large, solid mass identified. Patent portal vein. Consider GI referral and six-month HCC screening. Other chronic findings as above. Dictated by: Juventino Latham M.D. on 07/22/2024 at 11:34 Approved by: Juventino Latham M.D. on 07/22/2024 at 11:43
--- NOTE | 2024-07-22 | DI.NM.S_ITS ---
PROCEDURE: [place] BONE SCAN WHOLE BODY RADIOPHARMACEUTICAL: 21.6 mCi Tc-99m MDP IV. 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 Anterior and posterior views were acquired from vertex to feet. COMPARISON: [facility], CT, CT CHEST ABD PEL W CON, 07/22/2024, 10:19. [facility], [place], [place] BONE SCAN WHOLE BODY, 08/14/2023, 10:54. FINDINGS: Very faint radiotracer excretion is seen in the urinary system. Diffuse osseous metastases, primarily involving the spine, pelvis (more so on the right), and ribs. Calvarial uptake is also present. Overall extent and intensity are slightly decreased from prior imaging, but not resolved, for example in the thoracic spine. IMPRESSION: Very slightly decreased in extent and intensity of diffuse osseous metastases. Very faint radiotracer excretion is seen in the urinary system, which indicates malignant diffuse osseous uptake suppressing the urinary signal. Dictated by: Glenn Cardoso M.D. on 07/22/2024 at 14:53 Approved by: Glenn Cardoso M.D. on 07/22/2024 at 14:57
== END ==
PROVIDERS: PCP Family Medicine; Referring Provider Internal Medicine Hematology & Oncology; Visit Provider Internal Medicine Hematology & Oncology
DX: C50.911 Malignant neoplasm of unspecified site of right female breast (principal); C79.51 Secondary malignant neoplasm of bone; K76.89 Other specified diseases of liver; K74.60 Unspecified cirrhosis of liver; I25.10 Atherosclerotic heart disease of native coronary artery without angina pectoris; J43.2 Centrilobular emphysema; R91.8 Other nonspecific abnormal finding of lung field; Z90.49 Acquired absence of other specified parts of digestive tract
CPT/HCPCS: 71260; 74177; 78306; A9503; Q9967

== ENCOUNTER → 2024-07-29 13:22 | Outpatient (CLI) | payer MEDICARE, SELFPAY | LOC: WC 13:23 | PROVIDERS: PCP Family Medicine; Referring Provider Family Medicine; Visit Provider Surgery | DX: L89.313 Pressure ulcer of right buttock, stage 3 (principal); E11.628 Type 2 diabetes mellitus with other skin complications; R60.0 Localized edema; I50.9 Heart failure, unspecified; Z99.81 Dependence on supplemental oxygen | CPT/HCPCS: 11042; 99213 ==

== ENCOUNTER → 2024-08-11 13:36 | Outpatient (CLI) | payer MEDICARE, SELFPAY | LOC: WC 13:37 | PROVIDERS: PCP Family Medicine; Referring Provider Family Medicine; Visit Provider Surgery | DX: L89.313 Pressure ulcer of right buttock, stage 3 (principal); E11.628 Type 2 diabetes mellitus with other skin complications | CPT/HCPCS: 11042 ==

== ENCOUNTER → 2024-09-01 14:20 | Outpatient (CLI) | payer MEDICARE, SELFPAY | PROVIDERS: PCP Family Medicine; Referring Provider Family Medicine; Visit Provider Surgery | DX: E11.628 Type 2 diabetes mellitus with other skin complications (principal); R60.0 Localized edema; I50.9 Heart failure, unspecified; F17.210 Nicotine dependence, cigarettes, uncomplicated; Z99.81 Dependence on supplemental oxygen | CPT/HCPCS: 99213 ==

== ENCOUNTER → 2024-09-24 12:25 | Outpatient (CLI) | payer MEDICARE, SELFPAY ==
--- NOTE | 2024-09-24 12:26 | DI.RAD.S_ITS ---
PROCEDURE: XR CERVICAL SPINE 2V OR 3V INDICATIONS: chronic posterior pain s/p fall in Oct TECHNIQUE: 4 view(s) of the cervical spine were acquired. COMPARISON: None. FINDINGS: Please note that on the odontoid view is suboptimal. Otherwise, the vertebral body heights are preserved. Straightening of the cervical lordosis. Multilevel facet and uncinate arthropathy. Multilevel intervertebral disc height loss. No prevertebral soft tissue edema. IMPRESSION: No acute radiographic abnormality of the cervical spine. If there is persistent concern for a traumatic injury, a CT of the cervical spine without contrast would be recommended. Dictated by: Jose Briscoe M.D. on 09/25/2024 at 11:27 Approved by: Jose Briscoe M.D. on 09/25/2024 at 11:28
== END ==
LOC: RAD 12:26
PROVIDERS: PCP Family Medicine; Referring Provider Physician Assistant; Visit Provider Physician Assistant
DX: M47.812 Spondylosis without myelopathy or radiculopathy, cervical region (principal); M54.2 Cervicalgia
CPT/HCPCS: 72040